=== PATIENT | female | born 1950 | race Caucasian/White ===

== ENCOUNTER 2019-01-15 09:07 | Outpatient (CLI) | payer MEDICARE ==
--- NOTE | 2019-01-15 09:27 | RAD ---
XR Forearm Lt 2 View STANDARD: 01/15/2019 12:00 AM CLINICAL INDICATION: Injury, pain. Stress fracture ulna and radius. COMPARISON: None. FINDINGS: Comminuted impacted and angulated intra-articular distal radial fracture is present. There is dorsal tilt of the radiocarpal articulation, as a result. Distal aspect of ulna is not reliably assessed although there is suggestion of irregularity at the ulnar styloid which may relate to avulsion injury . IMPRESSION: 1. Distal radial, intra-articular fracture with associated dorsal tilt. 2. Suspected ulnar styloid avulsion injury. Incompletely visualized. Recommend dedicated views of the left wrist for further evaluation.. Transcribed Date/Time: 01/15/2019 9:39 AM
== END 2019-01-15 09:08 | disposition home or self-care (01) ==
LOC: BICRAD 09:07
PROVIDERS: ATTEND Specialist
DX: S52.502A Unspecified fracture of the lower end of left radius, initial encounter for closed fracture (principal)

== ENCOUNTER 2019-06-01 11:07 | Outpatient (CLI) | payer MEDICARE ==
--- NOTE | 2019-06-01 11:52 | RAD ---
PA AND LATERAL CHEST: HISTORY: Cough. FINDINGS: Heart size is mildly enlarged. Aorta is tortuous. A calcified granuloma is seen in the right lower hernan ng. There is mild pulmonary vascular congestion. No pneumothoraces or large effusions are seen. There are degenerative changes of the spine. POS: [facility]
--- NOTE | 2019-06-01 11:57 | RAD ---
EXAM: XR Lumbar Spine Comp W Bending PROVIDED CLINICAL HISTORY: Spinal stenosis, lumbar region. Difficulty walking for 2 to 3 years which is getting worse. COMPARISON: None FINDINGS: There are 5 nonrib-bearing lumbar-type vertebral bodies. There is suggestion of trace anterolisthesis of L4 on L5. The vertebral body heights and intervertebral disc spaces are within normal limits. Minimal osteophytes are seen scattered within the lumbar spine. Facet degenerative change seen in the lower lumbar spine. No abnormal translational motion is seen between the flexion and extension views. Splenic artery calcifications are seen in addition to what appears to represent a calcified splenic a rtery aneurysm which measures 3.6 cm x 2.9 cm. In addition, there is a large calcified mass in the left mid abdomen overlying the expected location of the left kidney which measures 8.1 cm. No prior s tudies are available for comparison. IMPRESSION: 1. Calcified mass left mid abdomen. Direct comparison with prior studies is recommended if available. If no prior studies are available for comparison, CT scan abdomen is recommended. 2. Splenic artery calcifications with focal prominence involving the splenic artery likely related to calcified splenic artery aneurysm measuring 3.6 cm in maximal dimensions. This was mentioned on prior reports from imaging studies in 2012, but no direct comparison is available. 3. Trace anterolisthesis of L4 and L5 with mild degenerative changes in the lumbar spine.
== END 2019-06-01 11:08 | disposition home or self-care (01) ==
LOC: BICRAD 11:07
PROVIDERS: ATTEND Specialist
DX: M48.061 Spinal stenosis, lumbar region without neurogenic claudication (principal); R05 Cough; I70.8 Atherosclerosis of other arteries; R19.00 Intra-abdominal and pelvic swelling, mass and lump, unspecified site
CPT/HCPCS: 71046; 72100

== ENCOUNTER 2019-06-17 09:07 | Outpatient (CLI) | payer MEDICARE ==
--- NOTE | 2019-06-17 10:55 | CT ---
CT Abdomen Pelvis WO Con 06/17/2019 12:00 AM HISTORY: Abdominal mass. Hypertension and Taylor's palsy. History of cholecystectomy and hysterectomy. COMPARISON: None. Technique: Multiple contiguous axial CT images are obtained through the abdomen and pelvis without IV contrast. Coronal reformats are provided. FINDINGS: This examination is limited for the evaluation of solid organs and vascular structures due to the lac k of intravenous contrast. Lower Chest: Vascular calcifications are seen in the coronary arteries. A small pericardial effusion is present. The heart is mildly enlarged. Mild dependent bibasilar atelectasis is present. Abdomen: Liver: Subcentimeter too small to characterize hypodense lesion is seen in the medial segment left he patic lobe. Gallbladder: Surgically absent. Pancreas: A lobulated cystic appearing mass is seen in the tail of the pancreas measuring approximate ly 2.2 cm. Spleen: Multiple splenic granulomata are present. Adrenals: A hypodense right adrenal mass measuring 3.8 cm is noted. Attenuation coefficient is sugges tive of an adrenal adenoma. The left adrenal gland demonstrates a grossly normal nonenhanced CT appearance. Kidneys: There is an exophytic increased density mass at the inferior pole right kidney measuring 4.5 cm which is difficult to further characterize on this nonenhanced CT scan exam. There is a large exophytic hypodense mass with peripheral calcification seen in the anterior aspect inferior pole left kidney with an adjacent lobulated area of increased density measuring 2.1 cm just medial to this peripherally calcified lesion. Additional subcentimeter difficult to characterize hypodense lesions a re seen in the left kidney with a larger 3.1 cm hypodense lesion superior pole left kidney. There are cortically based calcifications seen in each kidney with a few punctate nonobstructing right collins l calculi visualized. Ureters: No ureteral calculus is seen.. Pelvis: Urinary bladder: Decompressed but grossly normal in appearance. Reproductive Organs: Uterus is surgically absent. Lymph Nodes: No enlarged lymph nodes. Bowel: Colonic diverticulosis is seen throughout the colon. Loops of small bowel are normal in calibe r. Appendix: Not visualized, there are no secondary signs to suggest appendicitis. Peritoneum: No free fluid, free air, or fluid collection. Retroperitoneum: within normal limits. Vessels: Dense atherosclerotic vascular calcifications are seen in the abdominal aorta and involving the iliac arteries. There is a large peripherally calcified splenic artery aneurysm involving the mid splenic artery measuring 2.8 cm with a smaller peripherally calcified splenic artery aneurysm arsalan r the splenic hilum measuring 1.6 cm.. Abdominal Wall: within normal limits. Bones: Mild degenerative changes are seen in the spine. IMPRESSION: 1. Lobulated cystic pancreatic tail mass. This could be related to a benign or malignant cystic neopl asm. 2. Difficult to characterize increased density masslike structure inferior pole right kidney with lar ge peripherally calcified hypodense cystic lesion inferior pole left kidney with closely adjacent lobulated area of increased density. In addition, there are cystic lesions within the left kidney. 3. Right adrenal mass demonstrating characteristics is most compatible with adrenal adenoma. 4. Calcified splenic artery aneurysms largest measuring 2.8 cm. 6. Too small to characterize hypodense lesion left hepatic lobe. 7. Mild cardiomegaly with small pericardial effusion. 8. Colonic diverticulosis. Recommendations: Comparison with prior studies would be helpful for further evaluation of the cystic masses in the tail of the pancreas and in each kidney. If prior studies are not available for comparison, MRI abdomen without IV contrast may be beneficial for further evaluation. MRI with contra st is precluded secondary to patient's renal insufficiency.
--- NOTE | 2019-06-17 11:08 | MRI ---
MRI Lumbar Spine Noncontrast: HISTORY: Lumbar spinal stenosis. COMPARISON: CT abdomen on 06/17/2019. FINDINGS: There are increased T2-weighted signal intensity cystic lesions involving each kidney. These cystic l esions most likely represent renal cysts but are difficult to characterize on this exam. These cystic lesions were also seen on recent noncontrast CT scan of the abdomen. The large peripherally ca lcified cystic lesion left kidney is not imaged on this study. There is incomplete visualization of a right adrenal mass which was seen on recent CT scan examination. This demonstrated characteristics suggestive of an adenoma on the noncontrasted CT exam. Conus medullaris is normal in morphology and terminates at the L1 level. Normal signal intensity is demonstrated in the bone marrow. T12-L1: There is a minimal disc osteophyte complex with slight effacement of the ventral aspect of th e thecal sac without significant central canal narrowing. Neural foramina are patent. L1-2: Minimal disc osteophyte complex is present. There is no significant central canal or neural for aminal narrowing. L2-3: Minimal disc osteophyte complex is present. There is no significant central canal or neural for aminal narrowing. L3-4: There is minimal disc osteophyte complex with facet hypertrophic changes. There is no significa nt central canal or neural foraminal narrowing. L4-5: Facet hypertrophic changes are present. There is a minimal disc osteophyte complex. Minimal enmanuel rowing of the central spinal canal is present. The neural foramina are patent. L5-S1: No disc bulge or disc herniation. Central spinal canal and neural foramina are patent. IMPRESSION: 1. Minimal degenerative changes lumbar spine. Central spinal canal and neural foramina of the lumbar spine are patent all levels. 2. Incompletely evaluated bilateral cystic renal lesions. 3. Incomplete visualization of a right adrenal mass which demonstrated characteristics on recent nonc ontrasted CT abdomen suggestive of an adrenal adenoma.
== END 2019-06-17 09:08 | disposition home or self-care (01) ==
LOC: MRI 09:07
PROVIDERS: ATTEND Specialist
DX: M48.08 Spinal stenosis, sacral and sacrococcygeal region (principal); R19.00 Intra-abdominal and pelvic swelling, mass and lump, unspecified site; K86.9 Disease of pancreas, unspecified; N28.89 Other specified disorders of kidney and ureter; I70.8 Atherosclerosis of other arteries; K76.9 Liver disease, unspecified; K57.30 Diverticulosis of large intestine without perforation or abscess without bleeding; I51.7 Cardiomegaly; R93.5 Abnormal findings on diagnostic imaging of other abdominal regions, including retroperitoneum; M47.816 Spondylosis without myelopathy or radiculopathy, lumbar region; M48.061 Spinal stenosis, lumbar region without neurogenic claudication; N28.9 Disorder of kidney and ureter, unspecified
CPT/HCPCS: 72148; 74176; 82565

== ENCOUNTER 2021-08-18 10:51 | Inpatient (IN) | payer MEDICARE, MEDICAID ==
[2021-08-18 11:27] LABS: Hemoglobin 9.5 g/dL (12.0-16.0); Mean Corpuscular HGB CONC 32.3 g/dL (32.0-36.0); Mean Corpuscular Hemoglobin 29.1 pg (27.0-31.0); Mean Corpuscular Volume 90.2 fL (78.0-98.0); RBC Distribution Width 14.9 % (11.5-14.5); Red Blood Cell (RBC) Count 3.27 mill/uL (4.20-5.40)
[2021-08-18] MEDS ORDERED: Ondansetron PF 4 MG/2 ML Vial ONE ×2 (11:31→14:06)
[2021-08-18] MEDS ORDERED: Cefepime 2 GM VIAL ONE (11:31)
[2021-08-18] MEDS ORDERED: Acetaminophen 500 MG TAB ONE (11:31)
[2021-08-18 11:34] LABS: INR-International Normal Ratio 1.3; PTT 30.4 sec (22.9-36.1); Prothrombin Time 16.1 sec (12.0-14.7)
[2021-08-18 11:47] LABS: Anisocytosis SLIGHT = 6-15 cells (100X) (0-5/hpf); Band 4 % (5-11); Hypochromia SLIGHT = 6-15 cells (100X) (0-5/hpf); Lymphocytes 4 % (21-51); MDiff Complete? YES; Mean Platelet Volume 8.4 fL (7.4-10.4); Monocytes 3 % (0-10); Neutrophil 87 % (42-75); Platelet Count 201 thou/uL (130-400); Platelet Morphology Comment Appears Adequate; Vacuoles SLIGHT; White Blood Cell (WBC) Count 12.2 thou/uL (4.8-10.8)
[2021-08-18 11:48] LABS: ALT (SGPT) 45 U/L (8-55); AST (SGOT) 36 U/L (5-34); Albumin 3.5 g/dL (3.4-4.8); Alkaline Phosphatase 139 U/L (40-110); Anion Gap 14 mmol/L (10-20); BUN (Urea Nitrogen) 42 mg/dL (9.8-20.1); Bilirubin, Total 1.5 mg/dL (0.2-1.2); Calc. Creatinine Clearance 0 mL/min (70-130); Carbon Dioxide 15 mmol/L (23-31); Chloride 112 mmol/L (98-107); Globulin 3.3 g/dL (2.4-3.5); Glucose 130 mg/dL (80-115); Potassium 4.3 mmol/L (3.5-5.1); Protein, Total 6.8 g/dL (5.8-8.1); Sodium 137 mmol/L (136-145)
[2021-08-18 11:56] LABS: Bilirubin Negative (Negative); Blood, Urine 2+ (Negative); Clarity Turbid (Clear); Glucose, Urine (Dipstick) Normal (Negative); Ketone, Urine Negative (Negative); Leukocyte 500 Leu/uL (Negative); Nitrite Negative (Negative); Protein, Urine (Dipstick) 300 mg/dL (Neg-Trace); Specific Gravity, Urine 1.016 (1.002-1.036); Squamous Epithelial 0-3 HPF (0-3); Urobilinogen Normal mg/dL (Less than 2); WBC/HPF Greater than 50 HPF (0-3)
[2021-08-18 12:04] LABS: Bacteria/HPF 1+ HPF (None Seen)
[2021-08-18 12:13] LABS: SARS-CoV-2 NAA Rapid Test Not Detected (NotDetected)
[2021-08-18] MEDS ORDERED: Vancomycin 1 GM/200 ML BAG ONE ×2 (12:40→12:41)
[2021-08-18] MEDS ORDERED: Ondansetron PF 4 MG/2 ML Vial IVP PRN (13:20)
[2021-08-18] MEDS ORDERED: Fentanyl 250 MCG/5 ML VIAL ONE (13:25)
[2021-08-18] MEDS ORDERED: Iothalamate Meglumine 60% 50 ML VIAL FS ONE (13:46)
[2021-08-18] MEDS ORDERED: Morphine 4 MG/ML VIAL SLOW IVP PRN (13:55)
[2021-08-18] MEDS ORDERED: Meropenem 1 GM in Sodium Chloride 0.9% 100 ML IVPB SCH ×2 (14:00→14:15)
[2021-08-18] MEDS ORDERED: Sodium Chloride 0.9% 500 ML IV SCH (14:00)
[2021-08-18] MEDS ORDERED: Lidocaine 1% PF 5 ML VIAL ONE (14:06)
[2021-08-18] MEDS ORDERED: PROPOFOL 200 MG/20 ML VIAL ONE (14:06)
[2021-08-18] MEDS ORDERED: Promethazine HCl 25 MG/ML VIAL IM PRN (14:46)
[2021-08-18] MEDS ORDERED: Promethazine HCl 25 MG/ML VIAL IVPB PRN (14:46)
[2021-08-18] MEDS ORDERED: Ondansetron HCl/PF 4 MG/2 ML Vial IVP PRN (14:46)
[2021-08-18] MEDS: Sodium Chloride 0.9% 1,000 ML IV SCH ×3 (16:09→23:36)
[2021-08-18] MEDS: Heparin 5,000 UNITS/ML VIAL SC SCH (21:01)
[2021-08-18] MEDS: Meropenem 500 MG in Sodium Chloride 0.9% 100 ML IVPB SCH (23:36)
[2021-08-19] MEDS ORDERED: Furosemide 20 MG/2 ML VIAL SLOW IVP SCH (01:30)
[2021-08-19] MEDS: Acetaminophen 325 MG TAB PO PRN ×2 (01:46→05:31)
[2021-08-19] MEDS ORDERED: methylPREDNISolone Sod Succ/PF 125 MG/2 ML VIAL IVP SCH (02:00)
[2021-08-19 02:55] LABS: #Basophils 0.1 thou/uL (0.0-0.2); #Lymphocytes 0.2 thou/uL (1.20-3.40); #Monocytes 0.1 thou/uL (0.11-0.59); #Neutrophils 5.8 thou/uL (1.40-6.50); %Basophils 1.8 % (0.0-1.0); %Eosinophils 0.3 % (0.0-10.0); %Lymphocytes 3.7 % (21.0-51.0); %Monocytes 0.9 % (0.0-10.0); %Neutrophils 93.3 % (42.0-75.0); Hemoglobin 9.4 g/dL (12.0-16.0); Mean Corpuscular HGB CONC 33.1 g/dL (32.0-36.0); Mean Corpuscular Hemoglobin 30.3 pg (27.0-31.0); Mean Corpuscular Volume 91.6 fL (78.0-98.0); Mean Platelet Volume 8.3 fL (7.4-10.4); Platelet Count 168 thou/uL (130-400); RBC Distribution Width 15.2 % (11.5-14.5); Red Blood Cell (RBC) Count 3.11 mill/uL (4.20-5.40); White Blood Cell (WBC) Count 6.2 thou/uL (4.8-10.8)
[2021-08-19 03:04] LABS: Phosphorus 4.2 mg/dL (2.3-4.7)
[2021-08-19 03:06] LABS: Magnesium 1.8 mg/dL (1.6-2.6)
[2021-08-19 03:53] LABS: Chloride 111 mmol/L (98-107); Potassium 4.9 mmol/L (3.5-5.1)
[2021-08-19 03:54] LABS: Calcium 8.6 mg/dL (7.8-10.44); Glucose 107 mg/dL (80-115); Sodium 139 mmol/L (136-145)
[2021-08-19 03:56] LABS: Anion Gap 17 mmol/L (10-20); Carbon Dioxide 16 mmol/L (23-31)
[2021-08-19 03:58] LABS: Calc. Creatinine Clearance 16 mL/min (70-130)
[2021-08-19 03:59] LABS: BUN (Urea Nitrogen) 46 mg/dL (9.8-20.1)
[2021-08-19] MEDS: Heparin 5,000 UNITS/ML VIAL SC SCH ×2 (08:35→20:54)
[2021-08-19] MEDS: Meropenem 500 MG in Sodium Chloride 0.9% 100 ML IVPB SCH ×2 (12:16→23:27)
[2021-08-20 04:38] LABS: Anion Gap 19 mmol/L (10-20); BUN (Urea Nitrogen) 56 mg/dL (9.8-20.1); Calc. Creatinine Clearance 15 mL/min (70-130); Calcium 9.1 mg/dL (7.8-10.44); Carbon Dioxide 16 mmol/L (23-31); Chloride 114 mmol/L (98-107); Glucose 177 mg/dL (80-115); Potassium 5.2 mmol/L (3.5-5.1); Sodium 144 mmol/L (136-145)
[2021-08-20 05:57] LABS: Band 18 % (5-11); Hemoglobin 9.5 g/dL (12.0-16.0); Lymphocytes 3 % (21-51); MDiff Complete? YES; Mean Corpuscular HGB CONC 32.7 g/dL (32.0-36.0); Mean Corpuscular Hemoglobin 29.4 pg (27.0-31.0); Mean Platelet Volume 9.1 fL (7.4-10.4); Monocytes 7 % (0-10); Myelocyte 2 % (0-0); Neutrophil 70 % (42-75); Platelet Count 193 thou/uL (130-400); Platelet Morphology Comment Appears Adequate; RBC Distribution Width 15.4 % (11.5-14.5); RBC Morphology Normal; Red Blood Cell (RBC) Count 3.22 mill/uL (4.20-5.40); White Blood Cell (WBC) Count 21.7 thou/uL (4.8-10.8)
[2021-08-20] MEDS: cloNIDine 0.2 MG TAB PO SCH ×3 (08:21→20:51)
[2021-08-20] MEDS: Heparin 5,000 UNITS/ML VIAL SC SCH (08:21)
[2021-08-20] MEDS: Aspirin 81 mg Enteric Coated Tablet PO SCH (08:21)
[2021-08-20] MEDS: Polyethylene Glycol 3350 17 GM Packet PO SCH (08:21)
[2021-08-20] MEDS: Meropenem 500 MG in Sodium Chloride 0.9% 100 ML IVPB SCH (12:59)
[2021-08-20] MEDS ORDERED: Sodium Bicarb 50 MEQ/50 ML VIAL IVP SCH (14:15)
[2021-08-20] MEDS ORDERED: Sodium Bicarbonate 150 MEQ in Dextrose 5% in Water 1,000 ML IV SCH (14:30)
[2021-08-20] MEDS ORDERED: Furosemide 20 MG/2 ML VIAL SLOW IVP SCH (14:45)
[2021-08-20 18:28] LABS: Potassium 4.8 mmol/L (3.5-5.1); Sodium 140 mmol/L (136-145)
[2021-08-20 18:29] LABS: Anion Gap 18 mmol/L (10-20); BUN (Urea Nitrogen) 61 mg/dL (9.8-20.1); Calc. Creatinine Clearance 16 mL/min (70-130); Calcium 8.6 mg/dL (7.8-10.44); Carbon Dioxide 16 mmol/L (23-31); Chloride 111 mmol/L (98-107); Glucose 198 mg/dL (80-115)
[2021-08-20] MEDS: Donepezil HCl 10 MG TAB PO SCH (20:51)
[2021-08-21] MEDS: Meropenem 500 MG in Sodium Chloride 0.9% 100 ML IVPB SCH ×2 (00:22→11:43)
[2021-08-21 06:25] LABS: Hemoglobin 8.7 g/dL (12.0-16.0); Mean Corpuscular HGB CONC 32.7 g/dL (32.0-36.0); Mean Corpuscular Hemoglobin 29.6 pg (27.0-31.0); Mean Corpuscular Volume 90.5 fL (78.0-98.0); Mean Platelet Volume 8.9 fL (7.4-10.4); Platelet Count 202 thou/uL (130-400); RBC Distribution Width 15.4 % (11.5-14.5); Red Blood Cell (RBC) Count 2.95 mill/uL (4.20-5.40); White Blood Cell (WBC) Count 18.3 thou/uL (4.8-10.8)
[2021-08-21 06:34] LABS: Anion Gap 16 mmol/L (10-20); BUN (Urea Nitrogen) 68 mg/dL (9.8-20.1); Calc. Creatinine Clearance 16 mL/min (70-130); Carbon Dioxide 20 mmol/L (23-31); Chloride 110 mmol/L (98-107); Potassium 4.6 mmol/L (3.5-5.1); Sodium 141 mmol/L (136-145)
[2021-08-21 06:35] LABS: Calcium 8.3 mg/dL (7.8-10.44); Glucose 112 mg/dL (80-115)
[2021-08-21 06:54] LABS: Band 25 % (5-11); Hypochromia SLIGHT = 6-15 cells (100X) (0-5/hpf); Lymphocytes 6 % (21-51); MDiff Complete? YES; Metamyelocyte 1 % (0-0); Monocytes 8 % (0-10); Neutrophil 60 % (42-75); Platelet Morphology Comment Appears Adequate
[2021-08-21] MEDS: Aspirin 81 mg Enteric Coated Tablet PO SCH (09:34)
[2021-08-21] MEDS: cloNIDine 0.2 MG TAB PO SCH ×3 (09:35→20:39)
[2021-08-21] MEDS: Donepezil HCl 10 MG TAB PO SCH (20:39)
[2021-08-22] MEDS: Meropenem 500 MG in Sodium Chloride 0.9% 100 ML IVPB SCH ×2 (00:42→15:54)
[2021-08-22 06:34] LABS: Anion Gap 14 mmol/L (10-20); BUN (Urea Nitrogen) 71 mg/dL (9.8-20.1); Calc. Creatinine Clearance 16 mL/min (70-130); Calcium 8.1 mg/dL (7.8-10.44); Carbon Dioxide 22 mmol/L (23-31); Chloride 108 mmol/L (98-107); Glucose 114 mg/dL (80-115); Potassium 4.2 mmol/L (3.5-5.1); Sodium 140 mmol/L (136-145)
[2021-08-22 06:39] LABS: Hemoglobin 9.6 g/dL (12.0-16.0); Mean Corpuscular Hemoglobin 28.3 pg (27.0-31.0); Mean Corpuscular Volume 88.3 fL (78.0-98.0); Mean Platelet Volume 9.2 fL (7.4-10.4); Platelet Count 206 thou/uL (130-400); RBC Distribution Width 15.3 % (11.5-14.5); Red Blood Cell (RBC) Count 3.41 mill/uL (4.20-5.40); White Blood Cell (WBC) Count 13.3 thou/uL (4.8-10.8)
[2021-08-22 07:13] LABS: Band 5 % (5-11); Eosinophils 4 % (0-10); Lymphocytes 34 % (21-51); MDiff Complete? YES; Monocytes 3 % (0-10); Myelocyte 1 % (0-0); Neutrophil 53 % (42-75); Nucleated RBC 0 % (0); Platelet Morphology Comment Appears Adequate; RBC Morphology Normal
[2021-08-22] MEDS: cloNIDine 0.2 MG TAB PO SCH ×3 (09:12→20:46)
[2021-08-22] MEDS: Aspirin 81 mg Enteric Coated Tablet PO SCH (09:12)
[2021-08-22] MEDS: cefTRIAXone\\ROCEPHIN 2 GM in Sodium Chloride 0.9% 100 ML IVPB SCH (18:28)
[2021-08-22] MEDS: Donepezil HCl 10 MG TAB PO SCH (20:46)
[2021-08-23 06:20] LABS: Anion Gap 13 mmol/L (10-20); BUN (Urea Nitrogen) 69 mg/dL (9.8-20.1); Calc. Creatinine Clearance 18 mL/min (70-130); Calcium 8.4 mg/dL (7.8-10.44); Carbon Dioxide 22 mmol/L (23-31); Chloride 109 mmol/L (98-107); Glucose 125 mg/dL (80-115); Potassium 4.9 mmol/L (3.5-5.1); Sodium 139 mmol/L (136-145)
[2021-08-23 06:28] LABS: Band 3 % (5-11); Hemoglobin 9.8 g/dL (12.0-16.0); Hypochromia SLIGHT = 6-15 cells (100X) (0-5/hpf); Lymphocytes 19 % (21-51); MDiff Complete? YES; Mean Corpuscular HGB CONC 33.2 g/dL (32.0-36.0); Mean Corpuscular Hemoglobin 29.3 pg (27.0-31.0); Mean Corpuscular Volume 88.2 fL (78.0-98.0); Mean Platelet Volume 9.2 fL (7.4-10.4); Monocytes 13 % (0-10); Neutrophil 65 % (42-75); Platelet Count 247 thou/uL (130-400); Platelet Morphology Comment Appears Adequate; RBC Distribution Width 15.3 % (11.5-14.5); Red Blood Cell (RBC) Count 3.36 mill/uL (4.20-5.40); White Blood Cell (WBC) Count 13.7 thou/uL (4.8-10.8)
[2021-08-23] MEDS: Aspirin 81 mg Enteric Coated Tablet PO SCH (08:21)
[2021-08-23] MEDS: cloNIDine 0.2 MG TAB PO SCH ×3 (08:21→20:20)
[2021-08-23] MEDS: Polyethylene Glycol 3350 17 GM Packet PO SCH (08:22)
[2021-08-23] MEDS: cefTRIAXone\\ROCEPHIN 2 GM in Sodium Chloride 0.9% 100 ML IVPB SCH (15:44)
[2021-08-23] MEDS: Donepezil HCl 10 MG TAB PO SCH (20:18)
[2021-08-24 04:12] VITALS: BMI 26.4
[2021-08-24] MEDS: Aspirin 81 mg Enteric Coated Tablet PO SCH (10:33)
[2021-08-24] MEDS: cloNIDine 0.2 MG TAB PO SCH ×2 (10:33→16:17)
[2021-08-24 11:51] VITALS: TEMP 98.6
[2021-08-24] MEDS: cefTRIAXone\\ROCEPHIN 2 GM in Sodium Chloride 0.9% 100 ML IVPB SCH (17:30)
[2021-08-24 17:33] VITALS: BP 150/92
== END 2021-08-24 19:13 | DRG 853 ==
LOC: ERS 10:51 → 2NO 13:39 → SDC 13:49 → 2NO 15:16 → T4-B 08-21 15:05
PROVIDERS: ADMIT Internal Medicine; ATTEND Internal Medicine
PROC: 0T768DZ Dilation of Right Ureter with Intraluminal Device, Via Natural or Artificial Opening Endoscopic (ICD-10-PCS; principal; 2021-08-18)
PROC: BT1D1ZZ Fluoroscopy of Right Kidney, Ureter and Bladder using Low Osmolar Contrast (ICD-10-PCS; 2021-08-18)
PROC: 3E03329 Introduction of Other Anti-infective into Peripheral Vein, Percutaneous Approach (ICD-10-PCS; 2021-08-18)
PROC: 02HV33Z Insertion of Infusion Device into Superior Vena Cava, Percutaneous Approach (ICD-10-PCS; 2021-08-23)
PROC: B5181ZA Fluoroscopy of Superior Vena Cava using Low Osmolar Contrast, Guidance (ICD-10-PCS; 2021-08-23)
PROC: B548ZZA Ultrasonography of Superior Vena Cava, Guidance (ICD-10-PCS; 2021-08-23)
DX: A41.59 Other Gram-negative sepsis (principal); J96.00 Acute respiratory failure, unspecified whether with hypoxia or hypercapnia; N13.6 Pyonephrosis; N17.9 Acute kidney failure, unspecified; E87.2 Acidosis; K86.2 Cyst of pancreas; Z16.11 Resistance to penicillins; Z16.24 Resistance to multiple antibiotics; I12.0 Hypertensive chronic kidney disease with stage 5 chronic kidney disease or end stage renal disease; N18.5 Chronic kidney disease, stage 5; F03.90 Unspecified dementia, unspecified severity, without behavioral disturbance, psychotic disturbance, mood disturbance, and anxiety; R65.20 Severe sepsis without septic shock; J44.9 Chronic obstructive pulmonary disease, unspecified; E78.5 Hyperlipidemia, unspecified; E87.70 Fluid overload, unspecified; M19.90 Unspecified osteoarthritis, unspecified site; Z20.822 Contact with and (suspected) exposure to COVID-19; F25.0 Schizoaffective disorder, bipolar type; N13.9 Obstructive and reflux uropathy, unspecified; E87.5 Hyperkalemia; D63.1 Anemia in chronic kidney disease; Z88.1 Allergy status to other antibiotic agents; Z88.0 Allergy status to penicillin
CPT/HCPCS: 0240U; 36415; 36569; 51701; 71045; 71046; 74176; 74420; 80048; 80053; 81003; 81015; 83605; 83735; 83880; 84100; 85025; 85610; 85730; 87040; 87076; 87077; 87086; 87186; 93005; 93306; 94640; 94760; 96365; 96367; 96375; C1751; C2617; J0692; J0696; J1644; J1940; J2185; J2270; J2405; J2704; J2930; J3010; J3370; J3490; J7050; J7070; J7620; Q9961-U8

== ENCOUNTER 2023-01-27 20:30 | Inpatient (IN) | payer MEDICARE, MEDICAID ==
[2023-01-27 21:30] LABS: #Basophils 0.1 thou/uL (0.0-0.2); #Eosinphils 0.2 thou/uL (0.0-0.7); #Monocytes 0.4 thou/uL (0.11-0.59); %Basophils 0.6 % (0.0-1.0); %Eosinophils 2.2 % (0.0-10.0); %Lymphocytes 16.9 % (21.0-51.0); %Monocytes 3.4 % (0.0-10.0); %Neutrophils 75.9 % (42.0-75.0); Hematocrit 32.5 % (36.0-47.0); Hemoglobin 9.8 g/dL (12.0-16.0); Mean Corpuscular HGB CONC 30.2 g/dL (32.0-36.0); Mean Corpuscular Hemoglobin 25.3 pg (27.0-31.0); Mean Corpuscular Volume 83.8 fl (78.0-98.0); Mean Platelet Volume 9.1 fL (7.4-10.4); Platelet Count 299 10x3/uL (130-400); RBC Distribution Width 25.2 % (11.5-14.5); Red Blood Cell (RBC) Count 3.88 mill/uL (4.20-5.40); White Blood Cell (WBC) Count 10.5 10x3/uL (4.8-10.8)
[2023-01-27 21:36] LABS: Delete Auto Diff?? NO
[2023-01-27 21:58] LABS: ALT (SGPT) 13 U/L (8-55); AST (SGOT) 9 U/L (5-34); Albumin 3.3 g/dL (3.4-4.8); Alkaline Phosphatase 99 U/L (40-110); Anion Gap 21 mmol/L (10-20); BUN (Urea Nitrogen) 92 mg/dL (9.8-20.1); Bilirubin, Total 0.2 mg/dL (0.2-1.2); CK (CPK) 47 U/L (29-168); Calc. Creatinine Clearance 0 mL/min (70-130); Calcium 9.1 mg/dL (7.8-10.44); Carbon Dioxide 12 mmol/L (23-31); Chloride 108 mmol/L (98-107); Estimated GFR 5; Globulin 3.3 g/dL (2.4-3.5); Glucose 106 mg/dL (80-115); Lipase 166 U/L (8-78); Magnesium 2.4 mg/dL (1.6-2.6); Protein, Total 6.6 g/dL (5.8-8.1); Sodium 137 mmol/L (136-145)
[2023-01-27 22:03] LABS: Anisocytosis MODERATE=16-30 cells HPF (0-5); Burr Cells SLIGHT = 2-5 cells HPF (0-1); CellaVision Operator ID LAB.JMM; Elliptocytes SLIGHT = 2-5 cells HPF (0-1); Macrocytosis SLIGHT = 6-15 cells HPF (0-5); Platelet Adequacy Comment Platelets Normal; Poikilocytosis SLIGHT = 6-15 cells HPF (0-5); Polychromasia MODERATE = 3-4 cells HPF (0-2)
[2023-01-28] MEDS ORDERED: Acetaminophen 325 MG TAB PO SCH (00:09)
[2023-01-28] MEDS ORDERED: Lactated Ringer's 1,000 ML IV SCH (00:15)
[2023-01-28 04:42] LABS: #Basophils 0.1 thou/uL (0.0-0.2); #Eosinphils 0.1 thou/uL (0.0-0.7); #Monocytes 0.3 thou/uL (0.11-0.59); #Neutrophils 9.3 thou/uL (1.40-6.50); %Basophils 0.4 % (0.0-1.0); %Eosinophils 0.7 % (0.0-10.0); %Lymphocytes 11.7 % (21.0-51.0); %Monocytes 2.3 % (0.0-10.0); %Neutrophils 83.2 % (42.0-75.0); Hematocrit 35.5 % (36.0-47.0); Hemoglobin 10.5 g/dL (12.0-16.0); Mean Corpuscular HGB CONC 29.6 g/dL (32.0-36.0); Mean Corpuscular Hemoglobin 25.1 pg (27.0-31.0); Mean Corpuscular Volume 84.9 fl (78.0-98.0); Mean Platelet Volume 9.5 fL (7.4-10.4); Platelet Count 342 10x3/uL (130-400); RBC Distribution Width 25.7 % (11.5-14.5); Red Blood Cell (RBC) Count 4.18 mill/uL (4.20-5.40); White Blood Cell (WBC) Count 11.2 10x3/uL (4.8-10.8)
[2023-01-28 04:46] VITALS: BMI 24.0
[2023-01-28] MEDS: Lactated Ringer's 1,000 ML IV SCH ×3 (04:48→12:19)
[2023-01-28 05:09] LABS: Anion Gap 21 mmol/L (10-20); BUN (Urea Nitrogen) 90 mg/dL (9.8-20.1); Calc. Creatinine Clearance 7 mL/min (70-130); Calcium 9.3 mg/dL (7.8-10.44); Carbon Dioxide 10 mmol/L (23-31); Chloride 109 mmol/L (98-107); Estimated GFR 5; Glucose 97 mg/dL (80-115); Magnesium 2.7 mg/dL (1.6-2.6); Potassium 4.3 mmol/L (3.5-5.1); Sodium 136 mmol/L (136-145)
[2023-01-28 06:31] LABS: Bilirubin Negative (Negative); Blood, Urine 3+ (Negative); CAUTI Indications for Culture Alt mental st,lethar; Glucose, Urine (Dipstick) Normal (Negative); Ketone, Urine Trace mg/dL (Negative); Leukocyte 500 Leu/uL (Negative); Nitrite Negative (Negative); Protein, Urine (Dipstick) 300 mg/dL (Neg-Trace); Specific Gravity, Urine 1.014 (1.002-1.036); Squamous Epithelial 0-3 HPF (0-3); Urobilinogen Normal mg/dL (Less than 2); WBC/HPF Greater than 50 HPF (0-3)
[2023-01-28 06:42] LABS: Clarity Cloudy (Clear)
[2023-01-28 06:43] LABS: Bacteria/HPF 4+ HPF (None Seen)
[2023-01-28 06:44] LABS: Yeast-Budding None Seen HPF (None Seen)
[2023-01-28 06:47] LABS: Urine Culture Reflex Yes Yes
[2023-01-28] MEDS: Ascorbic Acid 500 mg Chewable Tablet PO SCH ×2 (09:42→21:37)
[2023-01-28] MEDS: Zinc Sulfate 220 MG CAP PO SCH (09:42)
[2023-01-28] MEDS: hydrALAZINE 10 MG TAB PO SCH ×3 (09:42→21:37)
[2023-01-28] MEDS: Aspirin 81 mg Enteric Coated Tablet PO SCH (09:42)
[2023-01-28] MEDS: Sertraline 25 MG TAB PO SCH (09:42)
[2023-01-28] MEDS: cloNIDine 0.2 MG TAB PO SCH ×3 (09:42→21:37)
[2023-01-28] MEDS: cloNIDine 0.3 MG TAB PO SCH ×3 (09:42→21:39)
[2023-01-28] MEDS: Folic Acid 1 MG TAB PO SCH (09:43)
[2023-01-28] MEDS: Cholecalciferol 1,000 UNITS (25 MCG) TAB PO SCH (09:43)
[2023-01-28] MEDS: dilTIAZem CD 240 MG CAP PO SCH (09:43)
[2023-01-28] MEDS: Polyethylene Glycol 3350 17 GM Packet PO SCH (09:46)
[2023-01-28] MEDS ORDERED: CEFAZOLIN 2 GM in Sodium Chloride 0.9% 100 ML IVPB SCH (13:00)
[2023-01-28] MEDS ORDERED: Sodium Bicarbonate 150 MEQ in Dextrose 5% in Water 1,000 ML IV SCH (15:00)
[2023-01-28] MEDS ORDERED: QUEtiapine 25 MG TAB PO SCH (21:00)
[2023-01-28] MEDS ORDERED: Non-Formulary Item 1 EACH (Quetiapine Fumarate [Seroquel] 50 MG Tablet) PO SCH (21:00)
[2023-01-28] MEDS ORDERED: QUEtiapine 100 MG TAB PO SCH (21:00)
[2023-01-28] MEDS: Donepezil HCl 10 MG TAB PO SCH (21:36)
[2023-01-28] MEDS: Acetaminophen 325 MG TAB PO PRN (21:37)
[2023-01-28] MEDS: QUEtiapine 25 MG TAB PO SCH (21:37)
[2023-01-29 05:17] LABS: HBSAB Concentration Less than 8.00 mIU/mL; HBSAg Index 0.25 S/CO (0-0.99); Hep B Core Total Ab Non-Reactive (NonReactive); Hep B Surf AB Non-Reactive (NonReactive); Hep B Surf Ag Non-Reactive S/CO (NonReactive); Hep C IgG Ab Non-Reactive S/CO (NonReactive); Hep C Index 0.06 S/CO (0-0.79)
[2023-01-29] MEDS ORDERED: Bupivacaine HCl 0.5%/Epinephrine 1:200,000/PF 30 ml Vial ONE (07:35)
[2023-01-29] MEDS ORDERED: Lidocaine 1% (PF) 30 ML VIAL ONE (07:38)
[2023-01-29] MEDS ORDERED: EPINEPHrine 1 MG/ML AMP ONE (07:38)
[2023-01-29] MEDS ORDERED: fentaNYL PF 100 MCG/2 ML SYRINGE ONE (07:40)
[2023-01-29] MEDS ORDERED: Clindamycin/D5W 600 mg/50 ml Premix Bag ONE (07:53)
[2023-01-29] MEDS ORDERED: SUGAMMADEX SODIUM 200 MG/2 ML VIAL ONE (07:54)
[2023-01-29] MEDS ORDERED: Rocuronium Bromide 10 MG/ML (10ML VIAL) ONE (08:02)
[2023-01-29] MEDS ORDERED: Lidocaine 1% PF 5 ML VIAL ONE (08:02)
[2023-01-29] MEDS ORDERED: Ondansetron PF 4 MG/2 ML Vial ONE (08:02)
[2023-01-29] MEDS ORDERED: PROPOFOL 200 MG/20 ML VIAL ONE (08:02)
[2023-01-29] MEDS ORDERED: Dexamethasone 20 MG/5 ML VIAL ONE (08:02)
[2023-01-29] MEDS ORDERED: Iopamidol 15 ML ONE (08:30)
[2023-01-29] MEDS ORDERED: Heparin 10,000 UNITS/ 10 ML VIAL ONE (09:17)
[2023-01-29] MEDS: Aspirin 81 mg Enteric Coated Tablet PO SCH (10:47)
[2023-01-29] MEDS: Ascorbic Acid 500 mg Chewable Tablet PO SCH ×2 (10:47→21:57)
[2023-01-29] MEDS: Cholecalciferol 1,000 UNITS (25 MCG) TAB PO SCH (10:47)
[2023-01-29] MEDS: cloNIDine 0.3 MG TAB PO SCH ×3 (10:47→21:58)
[2023-01-29] MEDS: cloNIDine 0.2 MG TAB PO SCH ×2 (10:47→17:19)
[2023-01-29] MEDS: Folic Acid 1 MG TAB PO SCH (10:48)
[2023-01-29] MEDS: hydrALAZINE 10 MG TAB PO SCH ×3 (10:49→21:58)
[2023-01-29 12:18] LABS: #Eosinphils 0.1 thou/uL (0.0-0.7); #Monocytes 0.1 thou/uL (0.11-0.59); %Basophils 0.3 % (0.0-1.0); %Monocytes 0.6 % (0.0-10.0); %Neutrophils 90.1 % (42.0-75.0); Hematocrit 29.2 % (36.0-47.0); Mean Corpuscular HGB CONC 30.8 g/dL (32.0-36.0); Mean Corpuscular Hemoglobin 25.4 pg (27.0-31.0); Mean Corpuscular Volume 82.5 fl (78.0-98.0); Mean Platelet Volume 9.7 fL (7.4-10.4); Platelet Count 259 10x3/uL (130-400); RBC Distribution Width 25.3 % (11.5-14.5); Red Blood Cell (RBC) Count 3.54 mill/uL (4.20-5.40); White Blood Cell (WBC) Count 7.8 10x3/uL (4.8-10.8)
[2023-01-29 12:36] LABS: Anion Gap 20 mmol/L (10-20); BUN (Urea Nitrogen) 80 mg/dL (9.8-20.1); Calc. Creatinine Clearance 8 mL/min (70-130); Calcium 8.6 mg/dL (7.8-10.44); Carbon Dioxide 20 mmol/L (23-31); Chloride 103 mmol/L (98-107); Estimated GFR 7; Glucose 106 mg/dL (80-115); Potassium 3.2 mmol/L (3.5-5.1); Sodium 140 mmol/L (136-145)
[2023-01-29 13:06] LABS: Anisocytosis MODERATE=16-30 cells HPF (0-5); Burr Cells SLIGHT = 2-5 cells HPF (0-1); CellaVision Operator ID LAB.KB; Ovalocytes SLIGHT = 2-5 cells HPF (0-1); Platelet Adequacy Comment Platelets Normal; Polychromasia SLIGHT = 2-3 cells HPF (0-2)
[2023-01-29] MEDS ORDERED: Potassium Chloride 20 MEQ TAB PO SCH (14:15)
[2023-01-29] MEDS: dilTIAZem CD 240 MG CAP PO SCH (15:15)
[2023-01-29] MEDS: Zinc Sulfate 220 MG CAP PO SCH (16:02)
[2023-01-29] MEDS: Sertraline 25 MG TAB PO SCH (16:06)
[2023-01-29] MEDS: Donepezil HCl 10 MG TAB PO SCH (21:58)
[2023-01-29] MEDS: QUEtiapine 25 MG TAB PO SCH (21:59)
[2023-01-30 04:44] LABS: Anion Gap 18 mmol/L (10-20); BUN (Urea Nitrogen) 71 mg/dL (9.8-20.1); Calc. Creatinine Clearance 9 mL/min (70-130); Calcium 8.7 mg/dL (7.8-10.44); Carbon Dioxide 20 mmol/L (23-31); Chloride 103 mmol/L (98-107); Estimated GFR 8; Glucose 97 mg/dL (80-115); Potassium 4.4 mmol/L (3.5-5.1); Sodium 137 mmol/L (136-145)
[2023-01-30] MEDS: Ascorbic Acid 500 mg Chewable Tablet PO SCH ×2 (09:05→22:07)
[2023-01-30] MEDS: hydrALAZINE 10 MG TAB PO SCH ×3 (09:06→22:07)
[2023-01-30] MEDS: Zinc Sulfate 220 MG CAP PO SCH (09:07)
[2023-01-30] MEDS: Sertraline 25 MG TAB PO SCH (09:07)
[2023-01-30] MEDS: dilTIAZem CD 240 MG CAP PO SCH (09:07)
[2023-01-30] MEDS: Folic Acid 1 MG TAB PO SCH (09:07)
[2023-01-30] MEDS: Aspirin 81 mg Enteric Coated Tablet PO SCH (09:08)
[2023-01-30] MEDS: Cholecalciferol 1,000 UNITS (25 MCG) TAB PO SCH (09:19)
[2023-01-30] MEDS ORDERED: Lactated Ringer's 500 ML IV SCH (09:30)
[2023-01-30] MEDS: cloNIDine 0.3 MG TAB PO SCH ×3 (09:37→22:09)
[2023-01-30] MEDS ORDERED: CEFAZOLIN 2 GM in Sodium Chloride 0.9% 100 ML IVPB SCH (11:00)
[2023-01-30 11:09] LABS: #Eosinphils 0.1 thou/uL (0.0-0.7); #Monocytes 0.7 thou/uL (0.11-0.59); #Neutrophils 10.1 thou/uL (1.40-6.50); %Basophils 0.2 % (0.0-1.0); %Eosinophils 0.5 % (0.0-10.0); %Monocytes 5.6 % (0.0-10.0); %Neutrophils 78.8 % (42.0-75.0); Hematocrit 29.8 % (36.0-47.0); Hemoglobin 8.9 g/dL (12.0-16.0); Mean Corpuscular HGB CONC 29.9 g/dL (32.0-36.0); Mean Corpuscular Hemoglobin 25.3 pg (27.0-31.0); Mean Corpuscular Volume 84.7 fl (78.0-98.0); Mean Platelet Volume 9.8 fL (7.4-10.4); Platelet Count 243 10x3/uL (130-400); RBC Distribution Width 26.4 % (11.5-14.5); Red Blood Cell (RBC) Count 3.52 mill/uL (4.20-5.40); White Blood Cell (WBC) Count 12.8 10x3/uL (4.8-10.8)
[2023-01-30] MEDS: Donepezil HCl 10 MG TAB PO SCH (22:07)
[2023-01-30] MEDS: QUEtiapine 25 MG TAB PO SCH (22:08)
[2023-01-31 05:32] LABS: Anion Gap 19 mmol/L (10-20); BUN (Urea Nitrogen) 77 mg/dL (9.8-20.1); Calc. Creatinine Clearance 8 mL/min (70-130); Calcium 8.7 mg/dL (7.8-10.44); Carbon Dioxide 20 mmol/L (23-31); Chloride 103 mmol/L (98-107); Estimated GFR 6; Glucose 80 mg/dL (80-115); Magnesium 2.3 mg/dL (1.6-2.6); Potassium 4.4 mmol/L (3.5-5.1); Sodium 138 mmol/L (136-145)
[2023-01-31 05:33] LABS: Phosphorus 4.7 mg/dL (2.3-4.7)
[2023-01-31] MEDS ORDERED: Heparin 10,000 UNITS/ 10 ML VIAL ONE (11:16)
[2023-01-31] MEDS ORDERED: Tuberculin PPD 0.1 ML VIAL I-DERMAL SCH (12:00)
[2023-01-31] MEDS: hydrALAZINE 10 MG TAB PO SCH ×3 (13:20→21:15)
[2023-01-31] MEDS: Aspirin 81 mg Enteric Coated Tablet PO SCH (13:21)
[2023-01-31] MEDS: Cholecalciferol 1,000 UNITS (25 MCG) TAB PO SCH (13:22)
[2023-01-31] MEDS: Folic Acid 1 MG TAB PO SCH (13:22)
[2023-01-31] MEDS: Sertraline 100 MG TAB PO SCH (13:23)
[2023-01-31] MEDS: Zinc Sulfate 220 MG CAP PO SCH (13:23)
[2023-01-31] MEDS: dilTIAZem CD 240 MG CAP PO SCH (13:24)
[2023-01-31] MEDS: Ascorbic Acid 500 mg Chewable Tablet PO SCH ×2 (13:26→21:16)
[2023-01-31] MEDS: cloNIDine 0.3 MG TAB PO SCH ×3 (13:26→21:16)
[2023-01-31] MEDS: Polyethylene Glycol 3350 17 GM Packet PO SCH (13:27)
[2023-01-31] MEDS: Lactated Ringer's 500 ML IV SCH ×2 (15:19→21:16)
[2023-01-31] MEDS: Donepezil HCl 10 MG TAB PO SCH (21:16)
[2023-01-31] MEDS: QUEtiapine 25 MG TAB PO SCH (21:16)
[2023-02-01] MEDS: Lactated Ringer's 500 ML IV SCH ×3 (00:23→09:48)
[2023-02-01 04:53] LABS: Anion Gap 16 mmol/L (10-20); BUN (Urea Nitrogen) 39 mg/dL (9.8-20.1); Calc. Creatinine Clearance 13 mL/min (70-130); Calcium 8.7 mg/dL (7.8-10.44); Carbon Dioxide 24 mmol/L (23-31); Chloride 100 mmol/L (98-107); Estimated GFR 11; Glucose 84 mg/dL (80-115); Magnesium 1.8 mg/dL (1.6-2.6); Potassium 3.8 mmol/L (3.5-5.1); Sodium 136 mmol/L (136-145)
[2023-02-01 05:11] LABS: Phosphorus 3.5 mg/dL (2.3-4.7)
[2023-02-01 06:33] LABS: #Eosinphils 0.3 thou/uL (0.0-0.7); #Monocytes 0.7 thou/uL (0.11-0.59); #Neutrophils 10.1 thou/uL (1.40-6.50); %Basophils 0.3 % (0.0-1.0); %Eosinophils 2.4 % (0.0-10.0); %Lymphocytes 17.2 % (21.0-51.0); %Monocytes 4.9 % (0.0-10.0); %Neutrophils 74.5 % (42.0-75.0); Hematocrit 32.7 % (36.0-47.0); Hemoglobin 9.8 g/dL (12.0-16.0); Mean Corpuscular Hemoglobin 25.8 pg (27.0-31.0); Mean Corpuscular Volume 86.1 fl (78.0-98.0); Mean Platelet Volume 9.7 fL (7.4-10.4); Platelet Count 213 10x3/uL (130-400); RBC Distribution Width 26.6 % (11.5-14.5); White Blood Cell (WBC) Count 13.5 10x3/uL (4.8-10.8)
[2023-02-01] MEDS ORDERED: Heparin 5,000 UNITS/ML VIAL SC SCH ×2 (09:30→15:00)
[2023-02-01] MEDS: Cholecalciferol 1,000 UNITS (25 MCG) TAB PO SCH (09:44)
[2023-02-01] MEDS: Ascorbic Acid 500 mg Chewable Tablet PO SCH ×2 (09:44→20:24)
[2023-02-01] MEDS: Aspirin 81 mg Enteric Coated Tablet PO SCH (09:44)
[2023-02-01] MEDS: cloNIDine 0.3 MG TAB PO SCH ×3 (09:45→20:24)
[2023-02-01] MEDS: dilTIAZem CD 240 MG CAP PO SCH (09:46)
[2023-02-01] MEDS: Folic Acid 1 MG TAB PO SCH (09:46)
[2023-02-01] MEDS: hydrALAZINE 10 MG TAB PO SCH ×3 (09:46→20:24)
[2023-02-01] MEDS: Sertraline 100 MG TAB PO SCH (09:47)
[2023-02-01] MEDS: Zinc Sulfate 220 MG CAP PO SCH (09:47)
[2023-02-01] MEDS: Lactated Ringer's 1,000 ML IV SCH ×2 (09:56→20:39)
[2023-02-01] MEDS: QUEtiapine 25 MG TAB PO SCH (20:23)
[2023-02-01] MEDS: Donepezil HCl 10 MG TAB PO SCH (20:24)
[2023-02-02 04:47] LABS: #Basophils 0.1 thou/uL (0.0-0.2); #Eosinphils 0.5 thou/uL (0.0-0.7); #Monocytes 0.7 thou/uL (0.11-0.59); #Neutrophils 9.5 thou/uL (1.40-6.50); %Basophils 0.4 % (0.0-1.0); %Eosinophils 4.2 % (0.0-10.0); %Lymphocytes 14.4 % (21.0-51.0); %Monocytes 5.4 % (0.0-10.0); %Neutrophils 74.9 % (42.0-75.0); Hematocrit 28.7 % (36.0-47.0); Hemoglobin 8.6 g/dL (12.0-16.0); Mean Corpuscular Hemoglobin 25.9 pg (27.0-31.0); Mean Corpuscular Volume 86.4 fl (78.0-98.0); Mean Platelet Volume 9.6 fL (7.4-10.4); Platelet Count 166 10x3/uL (130-400); Red Blood Cell (RBC) Count 3.32 mill/uL (4.20-5.40); White Blood Cell (WBC) Count 12.7 10x3/uL (4.8-10.8)
[2023-02-02 05:08] LABS: Anion Gap 15 mmol/L (10-20); BUN (Urea Nitrogen) 49 mg/dL (9.8-20.1); Calc. Creatinine Clearance 10 mL/min (70-130); Calcium 8.4 mg/dL (7.8-10.44); Carbon Dioxide 23 mmol/L (23-31); Chloride 102 mmol/L (98-107); Estimated GFR 9; Glucose 68 mg/dL (80-115); Magnesium 1.9 mg/dL (1.6-2.6); Sodium 136 mmol/L (136-145)
[2023-02-02] MEDS: Lactated Ringer's 1,000 ML IV SCH ×2 (06:01→17:36)
[2023-02-02] MEDS ORDERED: Dextrose 50% Abboject 50 ML SYRINGE SLOW IVP PRN (08:34)
[2023-02-02] MEDS ORDERED: Glucagon 1 MG/ML KIT IM PRN (08:34)
[2023-02-02] MEDS ORDERED: Dextrose 5% in Water 1,000 ML IV PRN (08:34)
[2023-02-02] MEDS: Sertraline 100 MG TAB PO SCH (10:05)
[2023-02-02] MEDS: hydrALAZINE 10 MG TAB PO SCH ×3 (10:05→21:05)
[2023-02-02] MEDS: Folic Acid 1 MG TAB PO SCH (10:05)
[2023-02-02] MEDS: Cholecalciferol 1,000 UNITS (25 MCG) TAB PO SCH (10:05)
[2023-02-02] MEDS: cloNIDine 0.3 MG TAB PO SCH ×3 (10:05→21:04)
[2023-02-02] MEDS: Ascorbic Acid 500 mg Chewable Tablet PO SCH ×2 (10:05→21:04)
[2023-02-02] MEDS: Zinc Sulfate 220 MG CAP PO SCH (10:06)
[2023-02-02] MEDS: Aspirin 81 mg Enteric Coated Tablet PO SCH (10:06)
[2023-02-02] MEDS: dilTIAZem CD 240 MG CAP PO SCH (10:06)
[2023-02-02] MEDS: QUEtiapine 25 MG TAB PO SCH (21:04)
[2023-02-02] MEDS: Donepezil HCl 10 MG TAB PO SCH (21:05)
[2023-02-03 04:41] LABS: #Basophils 0.1 thou/uL (0.0-0.2); #Eosinphils 0.5 thou/uL (0.0-0.7); #Monocytes 0.5 thou/uL (0.11-0.59); #Neutrophils 8.5 thou/uL (1.40-6.50); %Basophils 0.4 % (0.0-1.0); %Eosinophils 4.8 % (0.0-10.0); %Monocytes 4.8 % (0.0-10.0); %Neutrophils 75.4 % (42.0-75.0); Hematocrit 27.2 % (36.0-47.0); Hemoglobin 8.1 g/dL (12.0-16.0); Mean Corpuscular HGB CONC 29.8 g/dL (32.0-36.0); Mean Corpuscular Hemoglobin 25.4 pg (27.0-31.0); Mean Corpuscular Volume 85.3 fl (78.0-98.0); Mean Platelet Volume 10.4 fL (7.4-10.4); Platelet Count 142 10x3/uL (130-400); RBC Distribution Width 25.6 % (11.5-14.5); Red Blood Cell (RBC) Count 3.19 mill/uL (4.20-5.40); White Blood Cell (WBC) Count 11.3 10x3/uL (4.8-10.8)
[2023-02-03 04:59] LABS: Phosphorus 3.8 mg/dL (2.3-4.7)
[2023-02-03 05:00] LABS: Anion Gap 9 mmol/L (10-20); BUN (Urea Nitrogen) 58 mg/dL (9.8-20.1); Calc. Creatinine Clearance 9 mL/min (70-130); Calcium 8.2 mg/dL (7.8-10.44); Carbon Dioxide 26 mmol/L (23-31); Chloride 103 mmol/L (98-107); Estimated GFR 8; Glucose 93 mg/dL (80-115); Sodium 134 mmol/L (136-145)
[2023-02-03] MEDS: Lactated Ringer's 1,000 ML IV SCH ×3 (05:30→23:06)
[2023-02-03] MEDS: Aspirin 81 mg Enteric Coated Tablet PO SCH (09:25)
[2023-02-03] MEDS: hydrALAZINE 10 MG TAB PO SCH ×3 (09:25→23:05)
[2023-02-03] MEDS: Folic Acid 1 MG TAB PO SCH (09:25)
[2023-02-03] MEDS: Ascorbic Acid 500 mg Chewable Tablet PO SCH ×2 (09:25→23:04)
[2023-02-03] MEDS: cloNIDine 0.3 MG TAB PO SCH ×3 (09:25→23:05)
[2023-02-03] MEDS: Cholecalciferol 1,000 UNITS (25 MCG) TAB PO SCH (09:25)
[2023-02-03] MEDS: Sertraline 100 MG TAB PO SCH (09:25)
[2023-02-03] MEDS: dilTIAZem CD 240 MG CAP PO SCH (09:25)
[2023-02-03] MEDS: Polyethylene Glycol 3350 17 GM Packet PO SCH (09:26)
[2023-02-03] MEDS: Zinc Sulfate 220 MG CAP PO SCH (09:26)
[2023-02-03] MEDS ORDERED: Bisacodyl 5 MG TAB PO SCH (13:45)
[2023-02-03] MEDS: Acetaminophen 325 MG TAB PO PRN (23:05)
[2023-02-03] MEDS: Donepezil HCl 10 MG TAB PO SCH (23:05)
[2023-02-03] MEDS: QUEtiapine 25 MG TAB PO SCH (23:06)
[2023-02-04 04:15] LABS: #Basophils 0.1 thou/uL (0.0-0.2); #Eosinphils 0.4 thou/uL (0.0-0.7); #Monocytes 0.6 thou/uL (0.11-0.59); #Neutrophils 8.3 thou/uL (1.40-6.50); %Basophils 0.4 % (0.0-1.0); %Eosinophils 3.2 % (0.0-10.0); %Lymphocytes 17.9 % (21.0-51.0); %Monocytes 5.1 % (0.0-10.0); %Neutrophils 72.8 % (42.0-75.0); Hematocrit 29.1 % (36.0-47.0); Hemoglobin 8.9 g/dL (12.0-16.0); Mean Corpuscular HGB CONC 30.6 g/dL (32.0-36.0); Mean Corpuscular Hemoglobin 26.1 pg (27.0-31.0); Mean Corpuscular Volume 85.3 fl (78.0-98.0); Mean Platelet Volume 10.5 fL (7.4-10.4); Platelet Count 172 10x3/uL (130-400); Red Blood Cell (RBC) Count 3.41 mill/uL (4.20-5.40); White Blood Cell (WBC) Count 11.4 10x3/uL (4.8-10.8)
[2023-02-04 04:21] LABS: RBC Distribution Width 24.8 % (11.5-14.5)
[2023-02-04 04:36] LABS: Magnesium 1.6 mg/dL (1.6-2.6)
[2023-02-04 04:43] LABS: Phosphorus 1.8 mg/dL (2.3-4.7)
[2023-02-04] MEDS ORDERED: Bisacodyl 5 MG TAB PO SCH (09:00)
[2023-02-04] MEDS: dilTIAZem CD 240 MG CAP PO SCH (09:53)
[2023-02-04] MEDS: Folic Acid 1 MG TAB PO SCH (09:53)
[2023-02-04] MEDS: cloNIDine 0.3 MG TAB PO SCH ×2 (09:53→16:29)
[2023-02-04] MEDS: Cholecalciferol 1,000 UNITS (25 MCG) TAB PO SCH (09:53)
[2023-02-04] MEDS: Sertraline 100 MG TAB PO SCH (09:53)
[2023-02-04] MEDS: Zinc Sulfate 220 MG CAP PO SCH (09:53)
[2023-02-04] MEDS: Ascorbic Acid 500 mg Chewable Tablet PO SCH (09:53)
[2023-02-04] MEDS: Aspirin 81 mg Enteric Coated Tablet PO SCH (09:54)
[2023-02-04] MEDS: hydrALAZINE 10 MG TAB PO SCH ×2 (09:54→16:28)
[2023-02-04] MEDS: Lactated Ringer's 1,000 ML IV SCH (10:46)
[2023-02-04] MEDS ORDERED: Fosfomycin 3 GM/Packet PO SCH (15:00)
[2023-02-04 15:10] VITALS: BP 125/70; TEMP 98
== END 2023-02-04 17:41 | DRG 660 ==
LOC: ERS 20:30 → ERHOLD 23:27 → 2NO 01-28 01:21
PROVIDERS: ADMIT Family Medicine; ATTEND Family Medicine
PROC: BT1DZZZ Fluoroscopy of Right Kidney, Ureter and Bladder (ICD-10-PCS; principal; 2023-01-29)
PROC: 0T768DZ Dilation of Right Ureter with Intraluminal Device, Via Natural or Artificial Opening Endoscopic (ICD-10-PCS; 2023-01-29)
PROC: 0TP98DZ Removal of Intraluminal Device from Ureter, Via Natural or Artificial Opening Endoscopic (ICD-10-PCS; 2023-01-29)
PROC: 0JH63XZ Insertion of Tunneled Vascular Access Device into Chest Subcutaneous Tissue and Fascia, Percutaneous Approach (ICD-10-PCS; 2023-01-29)
PROC: 02HV33Z Insertion of Infusion Device into Superior Vena Cava, Percutaneous Approach (ICD-10-PCS; 2023-01-29)
PROC: B5181ZA Fluoroscopy of Superior Vena Cava using Low Osmolar Contrast, Guidance (ICD-10-PCS; 2023-01-29)
DX: N17.9 Acute kidney failure, unspecified (principal); E87.20 Acidosis, unspecified; K86.2 Cyst of pancreas; I12.0 Hypertensive chronic kidney disease with stage 5 chronic kidney disease or end stage renal disease; N39.0 Urinary tract infection, site not specified; J44.9 Chronic obstructive pulmonary disease, unspecified; E78.5 Hyperlipidemia, unspecified; M19.90 Unspecified osteoarthritis, unspecified site; F31.9 Bipolar disorder, unspecified; N13.30 Unspecified hydronephrosis; D63.1 Anemia in chronic kidney disease; L89.152 Pressure ulcer of sacral region, stage 2; N18.6 End stage renal disease; Z88.0 Allergy status to penicillin; Z88.1 Allergy status to other antibiotic agents; Z79.82 Long term (current) use of aspirin; Z79.899 Other long term (current) drug therapy; Z90.89 Acquired absence of other organs; Z87.891 Personal history of nicotine dependence; Z90.710 Acquired absence of both cervix and uterus; E86.0 Dehydration
CPT/HCPCS: 36415; 36416; 71045; 74176; 74420; 80048; 80053; 81001; 82550; 83690; 83735; 83880; 84100; 84145; 85025; 86140; 86480; 86580; 86704; 87077; 87086; 87186; 90935; 93005; 97139; C1752; C1769; C2617; G0257; J0171; J1100; J1644; J2001; J2405; J2704; J3490; J7070; J7120; Q9967

== ENCOUNTER 2023-04-02 10:36 | Emergency (ER) | payer MEDICARE, MEDICAID ==
[2023-04-02 11:23] LABS: #Basophils 0.1 thou/uL (0.0-0.2); #Eosinphils 0.3 thou/uL (0.0-0.7); #Monocytes 0.5 thou/uL (0.11-0.59); #Neutrophils 7.3 thou/uL (1.40-6.50); %Basophils 0.9 % (0.0-1.0); %Eosinophils 2.4 % (0.0-10.0); %Lymphocytes 23.3 % (21.0-51.0); %Monocytes 4.6 % (0.0-10.0); %Neutrophils 68.2 % (42.0-75.0); Hematocrit 33.2 % (36.0-47.0); Hemoglobin 10.4 g/dL (12.0-16.0); Mean Corpuscular HGB CONC 31.3 g/dL (32.0-36.0); Mean Corpuscular Hemoglobin 28.7 pg (27.0-31.0); Mean Corpuscular Volume 91.5 fl (78.0-98.0); Mean Platelet Volume 11.2 fL (7.4-10.4); Platelet Count 256 10x3/uL (130-400); RBC Distribution Width 17.6 % (11.5-14.5); Red Blood Cell (RBC) Count 3.63 mill/uL (4.20-5.40); White Blood Cell (WBC) Count 10.7 10x3/uL (4.8-10.8)
[2023-04-02 11:48] LABS: ALT (SGPT) 22 U/L (8-55); AST (SGOT) 22 U/L (5-34); Albumin 3.4 g/dL (3.4-4.8); Alkaline Phosphatase 76 U/L (40-110); Anion Gap 16 mmol/L (10-20); BUN (Urea Nitrogen) 41 mg/dL (9.8-20.1); Bilirubin, Total 0.3 mg/dL (0.2-1.2); Calc. Creatinine Clearance 0 mL/min (70-130); Calcium 9.1 mg/dL (7.8-10.44); Carbon Dioxide 26 mmol/L (23-31); Chloride 102 mmol/L (98-107); Estimated GFR 12; Globulin 3.1 g/dL (2.4-3.5); Glucose 133 mg/dL (80-115); Magnesium 2.1 mg/dL (1.6-2.6); Potassium 4.1 mmol/L (3.5-5.1); Protein, Total 6.5 g/dL (5.8-8.1); Sodium 140 mmol/L (136-145)
[2023-04-02 11:51] LABS: Clarity Cloudy (Clear); pH, Urine 7.5 (5.0-9.0)
[2023-04-02 11:52] LABS: Glucose, Urine (Dipstick) Negative (Negative); Ketone, Urine Negative (Negative); Leukocyte 500 (Negative); Nitrite Negative (Negative); Protein, Urine (Dipstick) 300 mg/dL (Neg-Trace)
[2023-04-02 11:53] LABS: Bilirubin Negative (Negative); Blood, Urine Moderate (Negative); Urobilinogen 0.2 mg/dL (Less than 2)
[2023-04-02 11:54] LABS: Bacteria/HPF 4+ HPF (None Seen); CAUTI Indications for Culture Alt mental st,lethar; Squamous Epithelial 0-3 HPF (0-3); WBC/HPF Greater Than 50 HPF (0-3)
[2023-04-02 11:54] LABS: Troponin I Less than 0.010 ng/mL (< 0.028)
[2023-04-02 11:55] LABS: Urine Culture Reflex Yes Yes
== END 2023-04-02 17:00 | disposition home or self-care (01) ==
LOC: ERS 10:36
DX: S09.90XA Unspecified injury of head, initial encounter (principal); N39.0 Urinary tract infection, site not specified; I12.0 Hypertensive chronic kidney disease with stage 5 chronic kidney disease or end stage renal disease; N18.6 End stage renal disease; M19.90 Unspecified osteoarthritis, unspecified site; J44.9 Chronic obstructive pulmonary disease, unspecified; W05.0XXA Fall from non-moving wheelchair, initial encounter; Z99.2 Dependence on renal dialysis; Z79.82 Long term (current) use of aspirin; Z79.899 Other long term (current) drug therapy
CPT/HCPCS: 36415; 51701; 70450; 71045; 72125; 80053; 81001; 83735; 83880; 84484; 85025; 87077; 87086; 87186; 93005

== ENCOUNTER 2023-12-01 11:39 | Inpatient (IN) | payer MEDICARE ==
[~2023-12-01 11:39] MED LIST: Heparin 10,000 UNITS/ 10 ML VIAL ONE; Iopamidol-370 76% 500 ML MDV (1 ML CHARGE) ONE
[2023-12-01 12:28] LABS: #Basophils 0.07 10x3/uL (0.0-0.2); %Basophils 0.7 % (0.0-1.0); %Eosinophils 1.8 % (0.0-10.0); %Lymphocytes 11.6 % (21.0-51.0); %Monocytes 5.1 % (0.0-10.0); %Neutrophils 80.2 % (42.0-75.0); Hematocrit 28.5 % (36.0-47.0); Hemoglobin 9.3 g/dL (12.0-16.0); Mean Corpuscular HGB CONC 32.6 g/dL (32.0-36.0); Mean Corpuscular Hemoglobin 32.5 pg (27.0-31.0); Mean Corpuscular Volume 99.7 fL (78.0-98.0); Mean Platelet Volume 11.3 fL (7.4-10.4); Platelet Count 208 10x3/uL (130-400); RBC Distribution Width 16.2 % (11.5-14.5); Red Blood Cell (RBC) Count 2.86 mill/uL (4.20-5.40)
[2023-12-01 12:42] LABS: INR-International Normal Ratio 1.1; Prothrombin Time 14.6 sec (12.0-14.7)
[2023-12-01 12:47] LABS: PTT 21.7 sec (22.9-36.1)
[2023-12-01 12:48] LABS: ALT (SGPT) 12 U/L (8-55); AST (SGOT) 11 U/L (5-34); Albumin 2.7 g/dL (3.4-4.8); Alkaline Phosphatase 71 U/L (40-110); Anion Gap 21 mmol/L (10-20); BUN (Urea Nitrogen) 87 mg/dL (9.8-20.1); Bilirubin, Total 0.5 mg/dL (0.2-1.2); Calc. Creatinine Clearance 0 mL/min (70-130); Calcium 8.5 mg/dL (7.8-10.44); Carbon Dioxide 18 mmol/L (23-31); Chloride 101 mmol/L (98-107); Estimated GFR 9; Globulin 3.2 g/dL (2.4-3.5); Glucose 138 mg/dL (83-110); Lipase 36 U/L (8-78); Magnesium 2.2 mg/dL (1.6-2.6); Potassium 3.5 mmol/L (3.5-5.1); Protein, Total 5.9 g/dL (5.8-8.1); Sodium 136 mmol/L (136-145)
[2023-12-01 12:51] LABS: Troponin I Less than 0.010 ng/mL (< 0.028)
[2023-12-01] MEDS ORDERED: Aspirin 300 MG Suppository ONE (13:30)
[2023-12-01] MEDS ORDERED: Bisacodyl 5 MG TAB PO PRN (15:08)
[2023-12-01] MEDS ORDERED: Acetaminophen 650 MG Suppository PR PRN (15:08)
[2023-12-01] MEDS ORDERED: hydrALAZINE 20 MG/ML VIAL SLOW IVP PRN (15:08)
[2023-12-01] MEDS ORDERED: Acetaminophen 325 MG TAB PO PRN (15:08)
[2023-12-01 15:12] LABS: Bacteria/HPF 4+ HPF (None Seen); Bilirubin Negative (Negative); Blood, Urine 2+ (Negative); CAUTI Indications for Culture Alt mental st,lethar; Clarity Extra Turbid (Clear); Glucose, Urine (Dipstick) Normal (Negative); Ketone, Urine Negative (Negative); Leukocyte 500 Leu/uL (Negative); Nitrite Negative (Negative); Protein, Urine (Dipstick) 300 mg/dL (Neg-Trace); RBC/HPF Greater than 50 HPF (0-3); Specific Gravity, Urine 1.016 (1.002-1.036); Squamous Epithelial None Seen HPF (0-3); WBC/HPF Greater than 50 HPF (0-3); pH, Urine 7.5 (5.0-9.0)
[2023-12-01 15:16] LABS: Urine Culture Reflex Yes Yes
[2023-12-01] MEDS ORDERED: cefTRIAXone (ROCEPHIN) 1 GM VIAL ONE (15:45)
[2023-12-01 17:45] LABS: Troponin I 0.011 ng/mL (< 0.028)
[2023-12-01 18:01] LABS: HBSAB Concentration Less than 8.00 mIU/mL; HBsAg Index 0.22 S/CO (0-0.99); Hep B Core Total Ab NONREACTIVE (NonReactive); Hep B Core Total Index 0.12 S/CO (0-0.79); Hep B Surf AB NONREACTIVE (NonReactive); Hep B Surf Ag NONREACTIVE S/CO (NonReactive); Hep C IgG Ab NONREACTIVE S/CO (NonReactive); Hep C Index 0.07 S/CO (0-0.79)
[2023-12-01] MEDS ORDERED: Loratadine 10 MG TAB PO PRN (19:02)
[2023-12-02] MEDS: cefTRIAXone\\ROCEPHIN 1 GM in Sodium Chloride 0.9% 100 ML IVPB SCH (01:56)
[2023-12-02] MEDS: Atorvastatin Calcium 40 MG TAB PO SCH (01:57)
[2023-12-02 03:45] LABS: #Basophils 0.06 10x3/uL (0.0-0.2); %Basophils 0.5 % (0.0-1.0); %Eosinophils 1.7 % (0.0-10.0); %Lymphocytes 20.5 % (21.0-51.0); %Monocytes 6.1 % (0.0-10.0); %Neutrophils 70.6 % (42.0-75.0); Hematocrit 32.4 % (36.0-47.0); Hemoglobin 10.5 g/dL (12.0-16.0); Mean Corpuscular HGB CONC 32.4 g/dL (32.0-36.0); Mean Corpuscular Hemoglobin 32.7 pg (27.0-31.0); Mean Corpuscular Volume 100.9 fL (78.0-98.0); Platelet Count 229 10x3/uL (130-400); RBC Distribution Width 16.1 % (11.5-14.5); Red Blood Cell (RBC) Count 3.21 mill/uL (4.20-5.40)
[2023-12-02 04:05] LABS: Troponin I Less than 0.010 ng/mL (< 0.028)
[2023-12-02 04:12] VITALS: BMI 23.3
[2023-12-02 04:15] LABS: Anion Gap 20 mmol/L (10-20); BUN (Urea Nitrogen) 30 mg/dL (9.8-20.1); Calc. Creatinine Clearance 19 mL/min (70-130); Calcium 8.9 mg/dL (7.8-10.44); Carbon Dioxide 24 mmol/L (23-31); Cardiac Risk 5.8 (Less than 4.5); Chloride 98 mmol/L (98-107); Cholesterol 187 mg/dl (< 200 Desired); Estimated GFR 18; Glucose 142 mg/dL (83-110); HDL Cholesterol 32 mg/dL (>60 Neg Risk); Potassium 3.6 mmol/L (3.5-5.1); Sodium 138 mmol/L (136-145); Triglycerides 430 mg/dL (Less than 150)
[2023-12-02] MEDS: Aspirin 81 mg Enteric Coated Tablet PO SCH (08:39)
[2023-12-02] MEDS ORDERED: Vancomycin 1 GM in Sodium Chloride 0.9% 250 ML 250 ML IVPB SCH (11:00)
[2023-12-02] MEDS: Vancomycin 1 GM in Premix 1 BAG IVPB SCH (12:33)
[2023-12-02] MEDS: cloNIDine 0.3 MG TAB PO SCH (16:18)
[2023-12-02] MEDS: QUEtiapine 25 MG TAB PO SCH (20:52)
[2023-12-02] MEDS: Donepezil HCl 10 MG TAB PO SCH (20:52)
[2023-12-02] MEDS: Memantine 10 MG TAB PO SCH (20:52)
[2023-12-02] MEDS: Pantoprazole DR 40 MG TAB PO SCH (20:52)
[2023-12-03 04:57] LABS: Hematocrit 31.7 % (36.0-47.0); Mean Corpuscular HGB CONC 31.5 g/dL (32.0-36.0); Mean Corpuscular Hemoglobin 31.9 pg (27.0-31.0); Mean Corpuscular Volume 101.3 fL (78.0-98.0); RBC Distribution Width 16.5 % (11.5-14.5); Red Blood Cell (RBC) Count 3.13 mill/uL (4.20-5.40)
[2023-12-03 04:58] LABS: #Basophils 0.07 10x3/uL (0.0-0.2); %Basophils 0.6 % (0.0-1.0); %Eosinophils 2.3 % (0.0-10.0); %Lymphocytes 20.4 % (21.0-51.0); %Monocytes 6.5 % (0.0-10.0); %Neutrophils 69.7 % (42.0-75.0); Mean Platelet Volume 11.3 fL (7.4-10.4); Platelet Count 203 10x3/uL (130-400)
[2023-12-03 05:31] LABS: Anion Gap 21 mmol/L (10-20); BUN (Urea Nitrogen) 43 mg/dL (9.8-20.1); Calc. Creatinine Clearance 14 mL/min (70-130); Calcium 9.2 mg/dL (7.8-10.44); Carbon Dioxide 24 mmol/L (23-31); Chloride 99 mmol/L (98-107); Estimated GFR 12; Glucose 86 mg/dL (83-110); Sodium 140 mmol/L (136-145)
[2023-12-03] MEDS ORDERED: Heparin 10,000 UNITS/ 10 ML VIAL ONE (09:09)
[2023-12-03] MEDS ORDERED: Activase 2 MG VIAL CATH SCH (09:45)
[2023-12-03] MEDS: Aspirin 81 mg Enteric Coated Tablet PO SCH (15:55)
[2023-12-03] MEDS: Sertraline 100 MG TAB PO SCH (15:56)
[2023-12-03] MEDS: dilTIAZem CD 180 MG CAP PO SCH (15:56)
[2023-12-03] MEDS: Folic Acid 1 MG TAB PO SCH (15:57)
[2023-12-03] MEDS: Bisacodyl 5 MG TAB PO SCH (15:57)
[2023-12-03] MEDS: EPOETIN ALFA-EPBX (ESRD) 10,000 UNITS/ML VIAL IVP SCH (16:23)
[2023-12-03] MEDS: Polyethylene Glycol 3350 17 GM Packet PO SCH (16:27)
[2023-12-03] MEDS ORDERED: Vancomycin HCl 500 MG in Sodium Chloride 0.9% 100 ML IVPB SCH (19:15)
[2023-12-03] MEDS ORDERED: Vancomycin Hemodialysis Sliding Scale FS SCH (19:30)
[2023-12-03] MEDS: Labetalol HCl 100 MG/20 ML VIAL SLOW IVP SCH (21:14)
[2023-12-04 04:07] LABS: #Basophils 0.07 10x3/uL (0.0-0.2); %Basophils 0.5 % (0.0-1.0); %Eosinophils 0.5 % (0.0-10.0); %Lymphocytes 17.1 % (21.0-51.0); %Monocytes 6.8 % (0.0-10.0); %Neutrophils 74.1 % (42.0-75.0); Hemoglobin 10.9 g/dL (12.0-16.0); Mean Corpuscular HGB CONC 32.1 g/dL (32.0-36.0); Mean Corpuscular Hemoglobin 32.2 pg (27.0-31.0); Mean Corpuscular Volume 100.3 fL (78.0-98.0); Mean Platelet Volume 11.1 fL (7.4-10.4); Platelet Count 210 10x3/uL (130-400); RBC Distribution Width 16.5 % (11.5-14.5); Red Blood Cell (RBC) Count 3.39 mill/uL (4.20-5.40)
[2023-12-04 04:18] LABS: Anion Gap 22 mmol/L (10-20); BUN (Urea Nitrogen) 20 mg/dL (9.8-20.1); Calc. Creatinine Clearance 18 mL/min (70-130); Calcium 9.6 mg/dL (7.8-10.44); Carbon Dioxide 24 mmol/L (23-31); Chloride 99 mmol/L (98-107); Estimated GFR 17; Glucose 123 mg/dL (83-110); Potassium 3.5 mmol/L (3.5-5.1); Sodium 141 mmol/L (136-145)
[2023-12-05 04:02] LABS: #Basophils 0.07 10x3/uL (0.0-0.2); %Basophils 0.5 % (0.0-1.0); %Eosinophils 2.4 % (0.0-10.0); %Lymphocytes 14.9 % (21.0-51.0); %Monocytes 6.9 % (0.0-10.0); %Neutrophils 74.4 % (42.0-75.0); Mean Corpuscular HGB CONC 31.3 g/dL (32.0-36.0); Mean Corpuscular Hemoglobin 31.3 pg (27.0-31.0); Mean Corpuscular Volume 100.3 fL (78.0-98.0); Mean Platelet Volume 11.5 fL (7.4-10.4); Platelet Count 194 10x3/uL (130-400); RBC Distribution Width 16.3 % (11.5-14.5); Red Blood Cell (RBC) Count 3.19 mill/uL (4.20-5.40)
[2023-12-05 04:17] LABS: Anion Gap 21 mmol/L (10-20); BUN (Urea Nitrogen) 35 mg/dL (9.8-20.1); Calc. Creatinine Clearance 12 mL/min (70-130); Calcium 9.2 mg/dL (7.8-10.44); Carbon Dioxide 22 mmol/L (23-31); Chloride 98 mmol/L (98-107); Estimated GFR 11; Glucose 108 mg/dL (83-110); Potassium 3.4 mmol/L (3.5-5.1); Sodium 138 mmol/L (136-145)
[2023-12-05 07:10] LABS: Vancomycin, Trough 11.8 ug/mL
[2023-12-05] MEDS ORDERED: Heparin 10,000 UNITS/ 10 ML VIAL ONE (09:28)
[2023-12-05] MEDS ORDERED: Activase 2 MG VIAL CATH SCH (16:00)
[2023-12-05] MEDS: Sterile Water 10 ML VIAL IVP SCH ×2 (19:11→19:12)
[2023-12-05] MEDS: Activase 2 MG VIAL CATH SCH ×2 (19:12)
[2023-12-05] MEDS: Potassium Chloride 20 MEQ TAB PO SCH (19:17)
[2023-12-05] MEDS: Vancomycin HCl 750 MG in Sodium Chloride 0.9% 250 ML 250 ML IVPB SCH (19:17)
[2023-12-06 05:52] LABS: #Basophils 0.06 10x3/uL (0.0-0.2); %Basophils 0.5 % (0.0-1.0); %Monocytes 6.4 % (0.0-10.0); %Neutrophils 76.3 % (42.0-75.0); Hematocrit 32.2 % (36.0-47.0); Hemoglobin 10.2 g/dL (12.0-16.0); Mean Corpuscular HGB CONC 31.7 g/dL (32.0-36.0); Mean Corpuscular Hemoglobin 31.7 pg (27.0-31.0); Mean Platelet Volume 11.7 fL (7.4-10.4); Platelet Count 186 10x3/uL (130-400); RBC Distribution Width 16.2 % (11.5-14.5); Red Blood Cell (RBC) Count 3.22 mill/uL (4.20-5.40)
[2023-12-06 08:31] LABS: Magnesium 2.1 mg/dL (1.6-2.6); Phosphorus 5.6 mg/dL (2.3-4.7)
[2023-12-06] MEDS ORDERED: Heparin 10,000 UNITS/ 10 ML VIAL ONE (09:30)
[2023-12-06 15:23] LABS: #Basophils 0.07 10x3/uL (0.0-0.2); %Basophils 0.5 % (0.0-1.0); %Eosinophils 0.6 % (0.0-10.0); %Lymphocytes 9.1 % (21.0-51.0); %Monocytes 4.4 % (0.0-10.0); %Neutrophils 84.6 % (42.0-75.0); Hematocrit 38.3 % (36.0-47.0); Mean Corpuscular HGB CONC 31.3 g/dL (32.0-36.0); Mean Corpuscular Hemoglobin 33.3 pg (27.0-31.0); Mean Corpuscular Volume 106.4 fL (78.0-98.0); Mean Platelet Volume 11.7 fL (7.4-10.4); Platelet Count 231 10x3/uL (130-400); RBC Distribution Width 16.7 % (11.5-14.5)
[2023-12-07 09:51] LABS: #Basophils 0.05 10x3/uL (0.0-0.2); %Basophils 0.4 % (0.0-1.0); %Lymphocytes 15.8 % (21.0-51.0); %Monocytes 5.9 % (0.0-10.0); %Neutrophils 74.9 % (42.0-75.0); Hematocrit 35.7 % (36.0-47.0); Hemoglobin 11.4 g/dL (12.0-16.0); Mean Corpuscular HGB CONC 31.9 g/dL (32.0-36.0); Mean Corpuscular Hemoglobin 33.1 pg (27.0-31.0); Mean Corpuscular Volume 103.8 fL (78.0-98.0); Mean Platelet Volume 11.9 fL (7.4-10.4); Platelet Count 222 10x3/uL (130-400); RBC Distribution Width 16.6 % (11.5-14.5); Red Blood Cell (RBC) Count 3.44 mill/uL (4.20-5.40)
[2023-12-07 10:13] LABS: Anion Gap 19 mmol/L (10-20); BUN (Urea Nitrogen) 20 mg/dL (9.8-20.1); Calc. Creatinine Clearance 18 mL/min (70-130); Calcium 9.7 mg/dL (7.8-10.44); Carbon Dioxide 19 mmol/L (23-31); Chloride 100 mmol/L (98-107); Estimated GFR 17; Glucose 93 mg/dL (83-110); Potassium 4.1 mmol/L (3.5-5.1); Sodium 134 mmol/L (136-145)
[2023-12-07] MEDS: Cefepime 1 GM in Sodium Chloride 0.9% 100 ML IVPB SCH (13:12)
[2023-12-08 05:09] LABS: #Basophils 0.06 10x3/uL (0.0-0.2); %Basophils 0.5 % (0.0-1.0); %Eosinophils 2.3 % (0.0-10.0); %Lymphocytes 14.9 % (21.0-51.0); %Monocytes 5.9 % (0.0-10.0); %Neutrophils 75.4 % (42.0-75.0); Hematocrit 30.2 % (36.0-47.0); Hemoglobin 9.6 g/dL (12.0-16.0); Mean Corpuscular HGB CONC 31.8 g/dL (32.0-36.0); Mean Corpuscular Hemoglobin 32.5 pg (27.0-31.0); Mean Corpuscular Volume 102.4 fL (78.0-98.0); Mean Platelet Volume 11.4 fL (7.4-10.4); Platelet Count 214 10x3/uL (130-400); RBC Distribution Width 16.2 % (11.5-14.5); Red Blood Cell (RBC) Count 2.95 mill/uL (4.20-5.40)
[2023-12-08 05:32] LABS: Anion Gap 19 mmol/L (10-20); BUN (Urea Nitrogen) 28 mg/dL (9.8-20.1); Calc. Creatinine Clearance 14 mL/min (70-130); Calcium 9.2 mg/dL (7.8-10.44); Carbon Dioxide 22 mmol/L (23-31); Chloride 98 mmol/L (98-107); Estimated GFR 12; Glucose 92 mg/dL (83-110); Sodium 135 mmol/L (136-145)
[2023-12-08] MEDS ORDERED: Heparin 10,000 UNITS/ 10 ML VIAL ONE (07:04)
[2023-12-08] MEDS: EPOETIN ALFA-EPBX (ESRD) 40,000 UNITS/ML VIAL IVP SCH (12:34)
[2023-12-09 05:56] LABS: #Basophils 0.06 10x3/uL (0.0-0.2); %Basophils 0.5 % (0.0-1.0); %Eosinophils 3.1 % (0.0-10.0); %Monocytes 6.3 % (0.0-10.0); %Neutrophils 69.3 % (42.0-75.0); Hematocrit 27.2 % (36.0-47.0); Hemoglobin 8.8 g/dL (12.0-16.0); Mean Corpuscular HGB CONC 32.4 g/dL (32.0-36.0); Mean Corpuscular Volume 98.9 fL (78.0-98.0); Mean Platelet Volume 10.8 fL (7.4-10.4); Platelet Count 211 10x3/uL (130-400); Red Blood Cell (RBC) Count 2.75 mill/uL (4.20-5.40)
[2023-12-09 06:31] LABS: Anion Gap 15 mmol/L (10-20); BUN (Urea Nitrogen) 21 mg/dL (9.8-20.1); Calc. Creatinine Clearance 17 mL/min (70-130); Calcium 8.8 mg/dL (7.8-10.44); Carbon Dioxide 24 mmol/L (23-31); Chloride 98 mmol/L (98-107); Estimated GFR 15; Glucose 81 mg/dL (83-110); Potassium 3.6 mmol/L (3.5-5.1); Sodium 133 mmol/L (136-145)
[2023-12-10] MEDS ORDERED: Vancomycin 1 GM in Premix 1 BAG IVPB SCH (04:30)
[2023-12-10] MEDS: Vancomycin (BATCH) 1.5 GM in Premix 1 BAG IVPB SCH (04:58)
[2023-12-10 05:39] LABS: #Basophils 0.05 10x3/uL (0.0-0.2); %Basophils 0.5 % (0.0-1.0); %Eosinophils 3.3 % (0.0-10.0); %Lymphocytes 24.3 % (21.0-51.0); %Neutrophils 63.8 % (42.0-75.0); Hematocrit 25.7 % (36.0-47.0); Hemoglobin 8.2 g/dL (12.0-16.0); Mean Corpuscular HGB CONC 31.9 g/dL (32.0-36.0); Mean Corpuscular Hemoglobin 31.8 pg (27.0-31.0); Mean Corpuscular Volume 99.6 fL (78.0-98.0); Mean Platelet Volume 11.3 fL (7.4-10.4); Platelet Count 219 10x3/uL (130-400); RBC Distribution Width 15.9 % (11.5-14.5); Red Blood Cell (RBC) Count 2.58 mill/uL (4.20-5.40)
[2023-12-10 05:42] LABS: Anion Gap 17 mmol/L (10-20); BUN (Urea Nitrogen) 29 mg/dL (9.8-20.1); Calc. Creatinine Clearance 13 mL/min (70-130); Calcium 8.9 mg/dL (7.8-10.44); Carbon Dioxide 23 mmol/L (23-31); Chloride 96 mmol/L (98-107); Estimated GFR 11; Glucose 82 mg/dL (83-110); Potassium 3.7 mmol/L (3.5-5.1); Sodium 132 mmol/L (136-145)
[2023-12-10] MEDS: cefTRIAXone\\ROCEPHIN 2 GM in Sodium Chloride 0.9% 100 ML IVPB SCH (11:58)
[2023-12-10] MEDS: EPOETIN ALFA-EPBX 10,000 UNITS/ML VIAL IVP SCH (12:50)
[2023-12-10] MEDS ORDERED: Lidocaine 2% PF 5 ML VIAL ONE (15:37)
[2023-12-10] MEDS ORDERED: EPINEPHrine 1 MG/ML VIAL ONE (15:37)
[2023-12-10] MEDS ORDERED: Heparin 10,000 UNITS/ 10 ML VIAL ONE (15:37)
[2023-12-10] MEDS ORDERED: Bupivacaine PF 0.5% 30 ML VIAL ONE (15:38)
[2023-12-11 04:48] LABS: #Basophils 0.05 10x3/uL (0.0-0.2); %Basophils 0.5 % (0.0-1.0); %Eosinophils 3.2 % (0.0-10.0); %Lymphocytes 20.1 % (21.0-51.0); %Monocytes 5.6 % (0.0-10.0); %Neutrophils 69.2 % (42.0-75.0); Hematocrit 25.2 % (36.0-47.0); Hemoglobin 8.1 g/dL (12.0-16.0); Mean Corpuscular HGB CONC 32.1 g/dL (32.0-36.0); Mean Corpuscular Hemoglobin 32.7 pg (27.0-31.0); Mean Corpuscular Volume 101.6 fL (78.0-98.0); Mean Platelet Volume 11.3 fL (7.4-10.4); Platelet Count 219 10x3/uL (130-400); RBC Distribution Width 15.7 % (11.5-14.5); Red Blood Cell (RBC) Count 2.48 mill/uL (4.20-5.40)
[2023-12-11 05:12] LABS: Anion Gap 16 mmol/L (10-20); BUN (Urea Nitrogen) 36 mg/dL (9.8-20.1); Calc. Creatinine Clearance 13 mL/min (70-130); Calcium 8.9 mg/dL (7.8-10.44); Carbon Dioxide 21 mmol/L (23-31); Chloride 99 mmol/L (98-107); Estimated GFR 10; Glucose 80 mg/dL (83-110); Potassium 4.2 mmol/L (3.5-5.1); Sodium 132 mmol/L (136-145)
[2023-12-11] MEDS ORDERED: EPINEPHrine 1 MG/ML VIAL ONE (09:11)
[2023-12-11] MEDS ORDERED: Lidocaine 2% PF 100 mg/5 ml Syringe ONE (09:11)
[2023-12-11] MEDS ORDERED: Heparin 10,000 UNITS/ 10 ML VIAL ONE ×2 (09:11→13:58)
[2023-12-11] MEDS ORDERED: Bupivacaine PF 0.5% 30 ML VIAL ONE (09:11)
[2023-12-11] MEDS ORDERED: fentaNYL PF 100 MCG/2 ML SYRINGE ONE (09:14)
[2023-12-11] MEDS ORDERED: PROPOFOL 20 ML ONE (09:14)
[2023-12-11] MEDS ORDERED: Dexamethasone 20 MG/5 ML VIAL ONE (09:14)
[2023-12-11] MEDS ORDERED: Sodium Chloride 0.9% 100 ML ONE (09:14)
[2023-12-11] MEDS ORDERED: cefTRIAXone (ROCEPHIN) 2 GM VIAL ONE (09:14)
[2023-12-11] MEDS ORDERED: Lidocaine 1% PF 5 ML VIAL ONE ×3 (09:14→16:42)
[2023-12-11] MEDS ORDERED: Ondansetron PF 4 MG/2 ML Vial ONE (09:14)
[2023-12-11] MEDS ORDERED: ePHEDrine Sulfate 50 MG/10 ML VIAL ONE (10:25)
[2023-12-11] MEDS ORDERED: PHENYLEPHRINE-NS 100 MCG/ML 10 ML SYRINGE ONE (10:28)
[2023-12-11] MEDS ORDERED: GLYCOPYRROLATE/PF 0.2 MG/ML VIAL ONE (10:28)
[2023-12-11] MEDS ORDERED: Sodium Bicarbonate 2.5 MEQ/5 ML SDV ONE (13:18)
[2023-12-11] MEDS ORDERED: Iopamidol 100 ML FS ONE (13:19)
[2023-12-11] MEDS ORDERED: fentaNYL 50 mcg/mL 1 mL Vial ONE (13:55)
[2023-12-11] MEDS ORDERED: Midazolam HCl 2 mg/2 ml Vial ONE (13:55)
[2023-12-11] MEDS ORDERED: Activase 2 MG VIAL ONE (14:02)
[2023-12-11] MEDS ORDERED: hydrALAZINE 20 MG/ML VIAL ONE (14:44)
[2023-12-12] MEDS: dilTIAZem CD 180 MG CAP PO SCH (03:03)
[2023-12-12] MEDS: Labetalol HCl 100 MG/20 ML VIAL SLOW IVP SCH (04:26)
[2023-12-12 06:13] LABS: #Basophils 0.03 10x3/uL (0.0-0.2); #Eosinphils Less than 0.03 10x3/uL (0.0-0.7); %Basophils 0.2 % (0.0-1.0); %Monocytes 3.6 % (0.0-10.0); %Neutrophils 88.3 % (42.0-75.0); Hematocrit 25.1 % (36.0-47.0); Hemoglobin 8.1 g/dL (12.0-16.0); Mean Corpuscular HGB CONC 32.3 g/dL (32.0-36.0); Mean Corpuscular Hemoglobin 31.6 pg (27.0-31.0); Mean Platelet Volume 10.7 fL (7.4-10.4); Platelet Count 286 10x3/uL (130-400); RBC Distribution Width 15.9 % (11.5-14.5); Red Blood Cell (RBC) Count 2.56 mill/uL (4.20-5.40)
[2023-12-12 06:26] LABS: Anion Gap 21 mmol/L (10-20); BUN (Urea Nitrogen) 40 mg/dL (9.8-20.1); Calc. Creatinine Clearance 10 mL/min (70-130); Carbon Dioxide 18 mmol/L (23-31); Chloride 101 mmol/L (98-107); Estimated GFR 9; Glucose 150 mg/dL (83-110); Potassium 4.8 mmol/L (3.5-5.1); Sodium 135 mmol/L (136-145)
[2023-12-13] MEDS: EPOETIN ALFA-EPBX (ESRD) 10,000 UNITS/ML VIAL SC SCH (15:42)
[2023-12-13] MEDS: Senokot S 8.6-50 MG TAB PO PRN (21:25)
[2023-12-14] MEDS ORDERED: Vancomycin Hemodialysis Sliding Scale FS SCH (11:30)
[2023-12-14 11:38] LABS: Vancomycin, Trough 18.6 ug/mL
[2023-12-15] MEDS ORDERED: PROPOFOL 20 ML ONE (07:08)
[2023-12-15] MEDS ORDERED: fentaNYL 50 mcg/mL 1 mL Vial ONE (07:08)
[2023-12-15] MEDS ORDERED: Lidocaine 1% PF 5 ML VIAL ONE (07:08)
[2023-12-15] MEDS ORDERED: Ondansetron PF 4 MG/2 ML Vial ONE (07:08)
[2023-12-15] MEDS ORDERED: Dexamethasone 20 MG/5 ML VIAL ONE (07:08)
[2023-12-15] MEDS ORDERED: PHENYLEPHRINE-NS 100 MCG/ML 10 ML SYRINGE ONE (07:10)
[2023-12-15] MEDS ORDERED: Glycopyrrolate 0.2 MG/ML 5 ML SYRINGE ONE (07:10)
[2023-12-15] MEDS ORDERED: Heparin 10,000 UNITS/ 10 ML VIAL ONE ×2 (07:31→08:57)
[2023-12-15] MEDS ORDERED: EPINEPHrine 1 MG/ML VIAL ONE (07:32)
[2023-12-15] MEDS ORDERED: Bupivacaine PF 0.5% 30 ML VIAL ONE (07:32)
[2023-12-15] MEDS ORDERED: Lidocaine 2% PF 5 ML VIAL ONE (07:32)
[2023-12-15 07:44] LABS: #Basophils 0.04 10x3/uL (0.0-0.2); %Basophils 0.4 % (0.0-1.0); %Eosinophils 2.3 % (0.0-10.0); %Lymphocytes 15.2 % (21.0-51.0); %Monocytes 5.4 % (0.0-10.0); %Neutrophils 75.5 % (42.0-75.0); Hematocrit 25.9 % (36.0-47.0); Hemoglobin 8.2 g/dL (12.0-16.0); Mean Corpuscular HGB CONC 31.7 g/dL (32.0-36.0); Mean Corpuscular Hemoglobin 32.3 pg (27.0-31.0); Mean Platelet Volume 10.6 fL (7.4-10.4); Platelet Count 261 10x3/uL (130-400); RBC Distribution Width 16.1 % (11.5-14.5); Red Blood Cell (RBC) Count 2.54 mill/uL (4.20-5.40)
[2023-12-15] MEDS ORDERED: ePHEDrine Sulfate 50 MG/10 ML VIAL ONE (08:29)
[2023-12-15 08:39] LABS: Vancomycin, Trough 19.2 ug/mL
[2023-12-15 08:49] LABS: ALT (SGPT) 12 U/L (8-55); AST (SGOT) 9 U/L (5-34); Albumin 2.3 g/dL (3.4-4.8); Alkaline Phosphatase 86 U/L (40-110); Anion Gap 22 mmol/L (10-20); BUN (Urea Nitrogen) 55 mg/dL (9.8-20.1); Bilirubin, Total 0.3 mg/dL (0.2-1.2); Calc. Creatinine Clearance 10 mL/min (70-130); Calcium 8.8 mg/dL (7.8-10.44); Carbon Dioxide 16 mmol/L (23-31); Chloride 105 mmol/L (98-107); Estimated GFR 8; Globulin 3.4 g/dL (2.4-3.5); Glucose 95 mg/dL (83-110); Potassium 4.8 mmol/L (3.5-5.1); Protein, Total 5.7 g/dL (5.8-8.1); Sodium 138 mmol/L (136-145)
[2023-12-15] MEDS: Vancomycin HCl 500 MG in Sodium Chloride 0.9% 100 ML IVPB SCH (18:30)
[2023-12-16 07:47] VITALS: BP 124/74; TEMP 97.8
[2023-12-16 11:45] VITALS: BMI 23.4
== END 2023-12-16 17:38 | DRG 314 ==
LOC: ERS 11:39 → ERHOLD 14:23 → 2SE 14:23 → OBSVTOIN 12-02 12:01 → T4-B 12-11 22:23 → IMCU/EMU 12-12 02:44 → 2SE 12-12 21:35 → T4-A 12-15 10:27
PROVIDERS: ADMIT Internal Medicine; ATTEND Internal Medicine
PROC: 4A00X4Z Measurement of Central Nervous Electrical Activity, External Approach (ICD-10-PCS; principal; 2023-12-02)
PROC: 0JPT0XZ Removal of Tunneled Vascular Access Device from Trunk Subcutaneous Tissue and Fascia, Open Approach (ICD-10-PCS; 2023-12-11)
PROC: 06HY33Z Insertion of Infusion Device into Lower Vein, Percutaneous Approach (ICD-10-PCS; 2023-12-11)
PROC: 0JH63XZ Insertion of Tunneled Vascular Access Device into Chest Subcutaneous Tissue and Fascia, Percutaneous Approach (ICD-10-PCS; 2023-12-15)
PROC: 02HV33Z Insertion of Infusion Device into Superior Vena Cava, Percutaneous Approach (ICD-10-PCS; 2023-12-15)
PROC: B518ZZA Fluoroscopy of Superior Vena Cava, Guidance (ICD-10-PCS; 2023-12-15)
DX: T82.7XXA Infection and inflammatory reaction due to other cardiac and vascular devices, implants and grafts, initial encounter (principal); A41.51 Sepsis due to Escherichia coli [E. coli]; N18.6 End stage renal disease; I12.0 Hypertensive chronic kidney disease with stage 5 chronic kidney disease or end stage renal disease; N39.0 Urinary tract infection, site not specified; Z16.23 Resistance to quinolones and fluoroquinolones; N13.6 Pyonephrosis; F03.918 Unspecified dementia, unspecified severity, with other behavioral disturbance; Y84.1 Kidney dialysis as the cause of abnormal reaction of the patient, or of later complication, without mention of misadventure at the time of the procedure; J44.9 Chronic obstructive pulmonary disease, unspecified; F25.9 Schizoaffective disorder, unspecified; F31.9 Bipolar disorder, unspecified; M19.90 Unspecified osteoarthritis, unspecified site; D63.1 Anemia in chronic kidney disease; R00.0 Tachycardia, unspecified; Z99.2 Dependence on renal dialysis; Z79.82 Long term (current) use of aspirin; Z79.899 Other long term (current) drug therapy; Z88.0 Allergy status to penicillin; Z88.1 Allergy status to other antibiotic agents
CPT/HCPCS: 36415; 36416; 36901; 36902; 70450; 70496; 70498; 70551; 71045; 72170; 74176; 80048; 80053; 80061; 80202; 81001; 83605; 83690; 83735; 84100; 84145; 84484; 85025; 85610; 85730; 86141; 86704; 86706; 86803; 87040; 87071; 87077; 87086; 87149; 87186; 87340; 90935; 93005; 93010; 93306; 93970; 95700; 95711; 95819; 96374; 96376; 97139; A6258; C1725; C1752; C1769; C1887; C1894; G0257; G0378; J0171; J0360; J0665; J0692; J0696; J1100; J1642; J1644; J2001; J2250; J2405; J2704; J2997; J3010; J3370; J3370-JW; J3490; Q5105; Q5106; Q9967

== ENCOUNTER 2024-01-06 15:24 | Emergency (ER) | payer MEDICARE ==
[2024-01-06] MEDS ORDERED: Sterile Water 10 ML VIAL IVP SCH (19:15)
[2024-01-06] MEDS ORDERED: Activase 2 MG VIAL CATH SCH (19:15)
== END 2024-01-06 23:20 ==
LOC: ERS 15:24
DX: T82.49XA Other complication of vascular dialysis catheter, initial encounter (principal); I12.9 Hypertensive chronic kidney disease with stage 1 through stage 4 chronic kidney disease, or unspecified chronic kidney disease; N18.9 Chronic kidney disease, unspecified
CPT/HCPCS: 70450; 72170; J2997

== ENCOUNTER 2024-01-13 16:25 | Emergency (ER) | payer MEDICARE ==
[2024-01-13 17:36] LABS: #Basophils 0.06 10x3/uL (0.0-0.2); %Basophils 0.8 % (0.0-1.0); %Eosinophils 3.4 % (0.0-10.0); %Lymphocytes 27.2 % (21.0-51.0); %Monocytes 7.4 % (0.0-10.0); %Neutrophils 60.5 % (42.0-75.0); Hematocrit 31.1 % (36.0-47.0); Hemoglobin 9.8 g/dL (12.0-16.0); Mean Corpuscular HGB CONC 31.5 g/dL (32.0-36.0); Mean Corpuscular Hemoglobin 32.2 pg (27.0-31.0); Mean Corpuscular Volume 102.3 fL (78.0-98.0); Mean Platelet Volume 11.2 fL (7.4-10.4); Platelet Count 178 10x3/uL (130-400); RBC Distribution Width 18.4 % (11.5-14.5); Red Blood Cell (RBC) Count 3.04 mill/uL (4.20-5.40)
[2024-01-13 17:54] LABS: Phosphorus 3.7 mg/dL (2.3-4.7)
[2024-01-13 17:55] LABS: ALT (SGPT) 23 U/L (8-55); AST (SGOT) 23 U/L (5-34); Albumin 2.8 g/dL (3.4-4.8); Alkaline Phosphatase 75 U/L (40-110); Anion Gap 15 mmol/L (10-20); BUN (Urea Nitrogen) 74 mg/dL (9.8-20.1); Bilirubin, Total 0.4 mg/dL (0.2-1.2); Calc. Creatinine Clearance 0 mL/min (70-130); Calcium 9.1 mg/dL (7.8-10.44); Carbon Dioxide 23 mmol/L (23-31); Chloride 108 mmol/L (98-107); Estimated GFR 10; Globulin 2.9 g/dL (2.4-3.5); Glucose 101 mg/dL (83-110); Magnesium 2.3 mg/dL (1.6-2.6); Potassium 3.9 mmol/L (3.5-5.1); Protein, Total 5.7 g/dL (5.8-8.1); Sodium 142 mmol/L (136-145)
== END 2024-01-13 20:18 ==
LOC: ERS 16:25
DX: T82.41XA Breakdown (mechanical) of vascular dialysis catheter, initial encounter (principal); J44.9 Chronic obstructive pulmonary disease, unspecified; I12.9 Hypertensive chronic kidney disease with stage 1 through stage 4 chronic kidney disease, or unspecified chronic kidney disease; N18.9 Chronic kidney disease, unspecified
CPT/HCPCS: 80053; 83735; 84100; 85025; J1642; 36415; 96374

== ENCOUNTER 2024-04-06 11:41 | Inpatient (IN) | payer MEDICARE, MEDICAID ==
[~2024-04-06 11:41] MED LIST changes: -Iopamidol-370 76% 500 ML MDV (1 ML CHARGE) ONE
[2024-04-06 12:59] LABS: #Basophils 0.04 10x3/uL (0.0-0.2); %Basophils 0.3 % (0.0-1.0); %Eosinophils 0.4 % (0.0-10.0); %Lymphocytes 18.5 % (21.0-51.0); %Monocytes 5.6 % (0.0-10.0); %Neutrophils 73.8 % (42.0-75.0); Hematocrit 35.7 % (36.0-47.0); Hemoglobin 10.7 g/dL (12.0-16.0); Mean Corpuscular Hemoglobin 29.4 pg (27.0-31.0); Mean Corpuscular Volume 98.1 fL (78.0-98.0); Mean Platelet Volume 10.5 fL (7.4-10.4); Platelet Count 221 10x3/uL (130-400); RBC Distribution Width 16.4 % (11.5-14.5); Red Blood Cell (RBC) Count 3.64 mill/uL (4.20-5.40)
[2024-04-06 13:26] LABS: ALT (SGPT) 16 U/L (8-55); AST (SGOT) 21 U/L (5-34); Albumin 2.5 g/dL (3.4-4.8); Alkaline Phosphatase 99 U/L (40-110); Anion Gap 20 mmol/L (10-20); BUN (Urea Nitrogen) 25 mg/dL (9.8-20.1); Bilirubin, Total 0.5 mg/dL (0.2-1.2); Calc. Creatinine Clearance 0 mL/min (70-130); Carbon Dioxide 31 mmol/L (23-31); Chloride 101 mmol/L (98-107); Estimated GFR 14; Glucose 94 mg/dL (83-110); Potassium 4.9 mmol/L (3.5-5.1); Protein, Total 6.5 g/dL (5.8-8.1); Sodium 147 mmol/L (136-145)
[2024-04-06] MEDS ORDERED: Vancomycin 1 GM/200 ML (FROZEN) BAG ONE (14:31)
[2024-04-06] MEDS ORDERED: Acetaminophen 325 MG TAB PO PRN (15:41)
[2024-04-06] MEDS ORDERED: Ondansetron PF 4 MG/2 ML Vial IVP PRN (15:44)
[2024-04-06] MEDS ORDERED: Senokot S 8.6-50 MG TAB PO PRN (15:44)
[2024-04-06] MEDS ORDERED: Ondansetron ODT 4 MG TAB PO PRN (15:44)
[2024-04-06] MEDS ORDERED: Acetaminophen 650 MG Suppository PR PRN (15:44)
[2024-04-06] MEDS ORDERED: Albuterol 2.5 MG (3 mL) NEB NEB PRN (15:45)
[2024-04-06] MEDS ORDERED: Nystatin Powder 15 GM BOT TOP PRN (15:46)
[2024-04-06] MEDS: Polyethylene Glycol 3350 17 GM Packet PO SCH (17:28)
[2024-04-06 18:13] VITALS: BMI 22.8
[2024-04-06] MEDS ORDERED: Vancomycin Hemodialysis Sliding Scale FS SCH (18:30)
[2024-04-06 20:24] LABS: HBSAB Concentration Less than 8.00 mIU/mL; HBsAg Index 0.26 S/CO (0-0.99); Hep B Core Total Ab NONREACTIVE (NonReactive); Hep B Core Total Index 0.24 S/CO (0-0.79); Hep B Surf AB NONREACTIVE (NonReactive); Hep B Surf Ag NONREACTIVE S/CO (NonReactive); Hep C IgG Ab NONREACTIVE S/CO (NonReactive); Hep C Index 0.07 S/CO (0-0.79)
[2024-04-06] MEDS ORDERED: Vancomycin 1 GM in Premix 1 BAG IVPB SCH (21:00)
[2024-04-06] MEDS: Activase 2 MG VIAL CATH SCH (21:18)
[2024-04-06] MEDS: Sterile Water 10 ML VIAL IVP SCH (21:19)
[2024-04-06] MEDS: Donepezil HCl 10 MG TAB PO SCH (21:26)
[2024-04-06] MEDS: Pantoprazole DR 40 MG TAB PO SCH (21:26)
[2024-04-06] MEDS: Atorvastatin Calcium 40 MG TAB PO SCH (21:27)
[2024-04-06] MEDS: Memantine 10 MG TAB PO SCH (21:27)
[2024-04-06] MEDS: Heparin 5,000 UNITS/ML VIAL SC SCH (21:27)
[2024-04-06] MEDS: QUEtiapine 25 MG TAB PO SCH (21:27)
[2024-04-07 05:06] LABS: #Basophils 0.03 10x3/uL (0.0-0.2); #Eosinophils Less than 0.03 10x3/uL (0.0-0.7); %Basophils 0.2 % (0.0-1.0); %Eosinophils 0.1 % (0.0-10.0); %Lymphocytes 8.7 % (21.0-51.0); %Monocytes 3.6 % (0.0-10.0); Hematocrit 34.6 % (36.0-47.0); Hemoglobin 10.4 g/dL (12.0-16.0); Mean Corpuscular HGB CONC 30.1 g/dL (32.0-36.0); Mean Corpuscular Hemoglobin 29.9 pg (27.0-31.0); Mean Corpuscular Volume 99.4 fL (78.0-98.0); Mean Platelet Volume 10.9 fL (7.4-10.4); Platelet Count 210 10x3/uL (130-400); RBC Distribution Width 16.6 % (11.5-14.5); Red Blood Cell (RBC) Count 3.48 mill/uL (4.20-5.40)
[2024-04-07 07:20] LABS: Vancomycin, Trough 26.7 ug/mL
[2024-04-07 07:22] LABS: ALT (SGPT) 15 U/L (8-55); AST (SGOT) 17 U/L (5-34); Albumin 2.6 g/dL (3.4-4.8); Alkaline Phosphatase 99 U/L (40-110); Anion Gap 23 mmol/L (10-20); BUN (Urea Nitrogen) 21 mg/dL (9.8-20.1); Bilirubin, Total 0.5 mg/dL (0.2-1.2); Calc. Creatinine Clearance 17 mL/min (70-130); Calcium 8.9 mg/dL (7.8-10.44); Carbon Dioxide 24 mmol/L (23-31); Chloride 102 mmol/L (98-107); Estimated GFR 16; Globulin 3.8 g/dL (2.4-3.5); Glucose 116 mg/dL (83-110); Potassium 4.3 mmol/L (3.5-5.1); Protein, Total 6.4 g/dL (5.8-8.1); Sodium 145 mmol/L (136-145)
[2024-04-07] MEDS: Sertraline 100 MG TAB PO SCH (09:52)
[2024-04-07] MEDS: Aspirin 81 mg Enteric Coated Tablet PO SCH (09:53)
[2024-04-07] MEDS: dilTIAZem CD 180 MG CAP PO SCH (09:53)
[2024-04-07] MEDS: HYDROcodone/Acetaminophen 5/325 mg Tablet PO SCH (09:53)
[2024-04-07] MEDS: Folic Acid 1 MG TAB PO SCH (09:54)
[2024-04-07 11:10] VITALS: BMI 22.8
[2024-04-07] MEDS ORDERED: HYDROcodone/Acetaminophen 5/325 mg Tablet PO PRN (13:00)
[2024-04-07] MEDS: Cefepime 0.5 GM, IV Admixture Fee-Chemo 1 UNITS in Sodium Chloride 0.9% 100 ML IVPB SCH (14:22)
[2024-04-07] MEDS: Cefepime 1 GM in Sodium Chloride 0.9% 100 ML IVPB SCH ×2 (18:06→18:15)
[2024-04-08 08:40] LABS: #Basophils 0.03 10x3/uL (0.0-0.2); %Basophils 0.2 % (0.0-1.0); %Eosinophils 0.4 % (0.0-10.0); %Monocytes 5.1 % (0.0-10.0); %Neutrophils 78.3 % (42.0-75.0); Hematocrit 32.8 % (36.0-47.0); Mean Corpuscular HGB CONC 30.5 g/dL (32.0-36.0); Mean Corpuscular Hemoglobin 29.3 pg (27.0-31.0); Mean Corpuscular Volume 96.2 fL (78.0-98.0); Mean Platelet Volume 10.7 fL (7.4-10.4); Platelet Count 228 10x3/uL (130-400); RBC Distribution Width 16.7 % (11.5-14.5); Red Blood Cell (RBC) Count 3.41 mill/uL (4.20-5.40)
[2024-04-08 08:54] LABS: Anion Gap 19 mmol/L (10-20); BUN (Urea Nitrogen) 27 mg/dL (9.8-20.1); Calc. Creatinine Clearance 15 mL/min (70-130); Calcium 8.9 mg/dL (7.8-10.44); Carbon Dioxide 25 mmol/L (23-31); Chloride 103 mmol/L (98-107); Estimated GFR 14; Glucose 79 mg/dL (83-110); Potassium 3.9 mmol/L (3.5-5.1); Sodium 143 mmol/L (136-145)
[2024-04-08 08:55] LABS: CRP,High Sensitivity (Inhouse) 2.31 mg/dL (< or = 0.5)
[2024-04-08] MEDS: FLU (Fluad Triv) TS24-25 (65UP)/MF59C/PF 45 MCG/0.5 ML Syringe IM ONE (10:30)
[2024-04-08] MEDS ORDERED: Heparin 10,000 UNITS/ 10 ML VIAL ONE ×2 (10:59→11:54)
[2024-04-08] MEDS ORDERED: EPINEPHrine 1 MG/ML VIAL ONE (10:59)
[2024-04-08] MEDS ORDERED: Bupivacaine PF 0.5% 30 ML VIAL ONE (10:59)
[2024-04-08] MEDS ORDERED: Lidocaine 1% PF 5 ML VIAL ONE (11:12)
[2024-04-08] MEDS ORDERED: Dexamethasone 4 mg/ml Vial ONE (11:12)
[2024-04-08] MEDS ORDERED: Ondansetron PF 4 MG/2 ML Vial ONE (11:12)
[2024-04-08] MEDS ORDERED: PROPOFOL 20 ML ONE (11:13)
[2024-04-08] MEDS ORDERED: fentaNYL PF 100 MCG/2 ML SYRINGE ONE (11:13)
[2024-04-08] MEDS ORDERED: CEFAZOLIN 1 GM VIAL ONE (11:46)
[2024-04-08] MEDS ORDERED: PHENYLEPHRINE-NS 100 MCG/ML 10 ML SYRINGE ONE (11:53)
[2024-04-08] MEDS ORDERED: ePHEDrine Sulfate 50 MG/10 ML VIAL ONE (12:25)
[2024-04-08] MEDS ORDERED: traMADol HCl 50 MG TAB PO PRN (13:07)
[2024-04-09 04:33] LABS: #Basophils 0.07 10x3/uL (0.0-0.2); #Eosinophils Less than 0.03 10x3/uL (0.0-0.7); %Basophils 0.4 % (0.0-1.0); %Eosinophils 0.1 % (0.0-10.0); %Lymphocytes 10.1 % (21.0-51.0); %Monocytes 3.9 % (0.0-10.0); %Neutrophils 82.2 % (42.0-75.0); Hematocrit 33.4 % (36.0-47.0); Hemoglobin 9.8 g/dL (12.0-16.0); Mean Corpuscular HGB CONC 29.3 g/dL (32.0-36.0); Mean Corpuscular Hemoglobin 28.8 pg (27.0-31.0); Mean Corpuscular Volume 98.2 fL (78.0-98.0); Mean Platelet Volume 11.2 fL (7.4-10.4); Platelet Count 220 10x3/uL (130-400); RBC Distribution Width 17.2 % (11.5-14.5)
[2024-04-09 04:44] LABS: Anion Gap 19 mmol/L (10-20); BUN (Urea Nitrogen) 22 mg/dL (9.8-20.1); Calc. Creatinine Clearance 19 mL/min (70-130); Calcium 8.4 mg/dL (7.8-10.44); Carbon Dioxide 22 mmol/L (23-31); Chloride 103 mmol/L (98-107); Estimated GFR 18; Glucose 80 mg/dL (83-110); Potassium 3.4 mmol/L (3.5-5.1); Sodium 141 mmol/L (136-145)
[2024-04-09 07:37] LABS: Vancomycin, Trough 18.7 ug/mL
[2024-04-09] MEDS: Vancomycin HCl 500 MG in Sodium Chloride 0.9% 100 ML IVPB SCH (17:33)
[2024-04-09 20:36] VITALS: BP 129/79; TEMP 97.4
== END 2024-04-09 23:29 | disposition short-term general hospital (02) | DRG 579 ==
LOC: ERS 11:41 → MSONC 16:08 → OBSVTOIN 04-07 08:51
PROVIDERS: ADMIT Internal Medicine; ATTEND Family Medicine
PROC: 0JH60XZ Insertion of Tunneled Vascular Access Device into Chest Subcutaneous Tissue and Fascia, Open Approach (ICD-10-PCS; principal; 2024-04-08)
PROC: 02HV33Z Insertion of Infusion Device into Superior Vena Cava, Percutaneous Approach (ICD-10-PCS; 2024-04-08)
PROC: B5181ZA Fluoroscopy of Superior Vena Cava using Low Osmolar Contrast, Guidance (ICD-10-PCS; 2024-04-08)
PROC: B548ZZA Ultrasonography of Superior Vena Cava, Guidance (ICD-10-PCS; 2024-04-08)
PROC: 0JPT0XZ Removal of Tunneled Vascular Access Device from Trunk Subcutaneous Tissue and Fascia, Open Approach (ICD-10-PCS; 2024-04-08)
PROC: 02PY33Z Removal of Infusion Device from Great Vessel, Percutaneous Approach (ICD-10-PCS; 2024-04-08)
DX: L03.114 Cellulitis of left upper limb (principal); N18.6 End stage renal disease; F03.93 Unspecified dementia, unspecified severity, with mood disturbance; I12.0 Hypertensive chronic kidney disease with stage 5 chronic kidney disease or end stage renal disease; D63.8 Anemia in other chronic diseases classified elsewhere; J44.9 Chronic obstructive pulmonary disease, unspecified; E78.5 Hyperlipidemia, unspecified; M19.90 Unspecified osteoarthritis, unspecified site; F31.9 Bipolar disorder, unspecified; F25.9 Schizoaffective disorder, unspecified; Z86.73 Personal history of transient ischemic attack (TIA), and cerebral infarction without residual deficits; Z99.2 Dependence on renal dialysis; Z88.0 Allergy status to penicillin
CPT/HCPCS: 36415; 36416; 71045; 80048; 80053; 80202; 83605; 85025; 86141; 86704; 86706; 86803; 87040; 87340; 90935; 96374; A6258; C1750; G0257; J0171; J0665; J0690; J0692; J1100; J1644; J2405; J2704; J3370; J3370-JW